=== PATIENT | female | born 1990 | race Caucasian/White ===

== ENCOUNTER 2016-10-08 08:55 | Emergency (ER) | payer OTHER ==
[2016-10-08 09:09] VITALS: BP 107/62
--- NOTE | 2016-10-08 09:21 | UC ---
Lower Extremity/Ankle HPI - HPI Summary HPI Summary: This morning, about 2 hours ago, got out of bed, left foot was asleep and she slipped, falling and inverting her left foot. Has taken ibuprofen but has not used ice. - History of Current Complaint Chief Complaint: UCLowerExtremity Stated Complaint: S/P FALL LEFT ANKLE INJURY Time Seen by Provider: 10/08/16 09:10 Hx Obtained From: Patient Hx Last Menstrual Period: 09/11/16 ?: No Onset/Duration: Sudden Onset, Lasting Hours - 2 Severity Initially: Moderate Severity Currently: Moderate Pain Intensity: 6 Pain Scale Used: 0-10 Numeric Aggravating Factor(s): Standing, Ambulation Alleviating Factor(s): OTC Meds Able to Bear Weight: No - Risk Factors DVT Risk Factors: Smoking Septic Arthritis Risk Factor: Negative - Allergies/Home Medications Allergies/Adverse Reactions: Allergies Allergy/AdvReac Type Severity Reaction Status Date / Time No Known Allergies Allergy Verified 10/08/16 09:04 PMH/Surg Hx/FS Hx/Imm Hx Previously Healthy: Yes Endocrine History Of: Denies: Diabetes Cardiovascular History Of: Denies: Cardiac Disorders Respiratory History Of: Denies: COPD, Asthma - Surgical History Surgical History: Yes Surgery Procedure, Year, and Place: left arm surgery. and tubal ligation 02/08/15 - Family History Known Family History: Positive: None - parents living and healthy, Other - son with Friedrick's ataxia - Social History Occupation: Employed Full-time Alcohol Use: Occasionally Substance Use Type: None Smoking Status (MU): Heavy Every Day Tobacco Smoker Type: Cigarettes Amount Used/How Often: 1/2 pack daily Have You Smoked in the Last Year: Yes Household Exposure Type: Cigarettes Review of Systems Constitutional: Negative Skin: Negative Eyes: Negative ENT: Negative Respiratory: Negative Cardiovascular: Negative Gastrointestinal: Negative Genitourinary: Negative Motor: Negative Neurovascular: Negative Musculoskeletal: Arthralgia Neurological: Negative Psychological: Negative All Other Systems Reviewed And Are Negative: Yes Physical Exam Triage Information Reviewed: Yes Appearance: Well-Appearing, Pain Distress - mild to moderate with palpation of foot. Vital Signs: Initial Vital Signs Temp 98.2 F 10/08/16 09:05 Pulse 80 10/08/16 09:05 Resp 16 10/08/16 09:05 BP 107/62 10/08/16 09:05 Pulse Ox 100 10/08/16 09:05 Vital Signs Reviewed: Yes ENT: Positive: Normal ENT inspection Respiratory: Positive: Lungs clear, Normal breath sounds Cardiovascular: Positive: RRR, No Murmur Musculoskeletal: Positive: Strength Intact, ROM Limited @, Other: - No tenderness distal tibia or fibula. Can flex ankle to neutral position. Pain with palpation of the anterior talofibular ligament. Tenderness fifth metatarsal. Mild swelling lateral border of foot. Pain with movement of subtalar joint. Psychological Exam: Normal Skin Exam: Normal Diagnostics - Laboratory Diagnostic Studies Completed/Ordered: xray negative for fracture. Lower Extremity Course/Dx - Course Course Of Treatment: ibuprofen, ice, Matty wrap - Differential Dx/Diagnosis Differential Diagnosis/HQI/PQRI: Sprain, Strain Provider Diagnoses: left foot strain. Discharge - Discharge Plan Condition: Stable Disposition: HOME Patient Education Materials: Foot Sprain (ED), RICE Therapy (ED) Forms: *Work Release Referrals: CAMDEN Holder [Primary Care Provider] - Additional Instructions: Ensure that you are elevating your foot and using ice regularly. Keep your foot in a firm supportive shoe. Off work for the next 3 days.
--- NOTE | 2016-10-08 09:44 | RAD ---
INDICATION: Left foot injury. TECHNIQUE: 3 views of the left foot were obtained. FINDINGS: The bones are in normal alignment. No fracture is seen. Joint spaces appear maintained. IMPRESSION: NO EVIDENCE FOR FRACTURE.
== END 2016-10-08 10:08 | disposition home or self-care (01) ==
LOC: UCCORT 08:55
DX: S96.912A Strain of unspecified muscle and tendon at ankle and foot level, left foot, initial encounter (principal); W01.0XXA Fall on same level from slipping, tripping and stumbling without subsequent striking against object, initial encounter; Y93.89 Activity, other specified; Y92.9 Unspecified place or not applicable; F17.210 Nicotine dependence, cigarettes, uncomplicated
CPT/HCPCS: 99211; 99212; G0463

== ENCOUNTER 2016-11-17 12:32 | Emergency (ER) | payer OTHER ==
[2016-11-17 14:21] VITALS: BP 106/52
--- NOTE | 2016-11-17 14:32 | UC ---
Throat Pain/Nasal Maicol HPI - HPI Summary HPI Summary: 26 yo female with large swollen painful gland left neck near angle of jaw no f/c has had a headache and felt fatigued x 1 week son with strep 2-3 weeks ago no n/v/d - History of Current Complaint Chief Complaint: UCGeneralIllness Stated Complaint: SORE THROAT Time Seen by Provider: 11/17/16 14:23 Hx Obtained From: Patient Hx Last Menstrual Period: 11/11/16 ?: No Onset/Duration: Sudden Onset, Lasting Days Severity: Moderate Pain Intensity: 4 Pain Scale Used: 0-10 Numeric Cough: None - Epiglottits Risk Factors Epiglottis Risk Factors: Negative - Allergies/Home Medications Allergies/Adverse Reactions: Allergies Allergy/AdvReac Type Severity Reaction Status Date / Time No Known Allergies Allergy Verified 11/17/16 14:21 PMH/Surg Hx/FS Hx/Imm Hx Previously Healthy: Yes Endocrine History Of: Denies: Diabetes Cardiovascular History Of: Denies: Cardiac Disorders Respiratory History Of: Denies: COPD, Asthma - Surgical History Surgical History: Yes Surgery Procedure, Year, and Place: left arm surgery. and tubal ligation 02/08/15 - Family History Known Family History: Positive: None - parents living and healthy, Hypertension , Other - son with Friedrick's ataxia Negative: Cardiac Disease, Diabetes - Social History Alcohol Use: None Substance Use Type: None Smoking Status (MU): Heavy Every Day Tobacco Smoker Type: Cigarettes Amount Used/How Often: 1/2 pack daily Have You Smoked in the Last Year: Yes Household Exposure Type: Cigarettes Review of Systems Constitutional: Fatigue Skin: Negative Eyes: Negative ENT: Negative Respiratory: Negative Cardiovascular: Negative Gastrointestinal: Negative Genitourinary: Negative Motor: Negative Neurovascular: Negative Musculoskeletal: Negative Neurological: Negative Psychological: Negative All Other Systems Reviewed And Are Negative: Yes Physical Exam Triage Information Reviewed: Yes Appearance: Well-Appearing, No Pain Distress, Well-Nourished Vital Signs: Initial Vital Signs Temp 98 F 11/17/16 14:15 Pulse 70 11/17/16 14:15 Resp 16 11/17/16 14:15 BP 106/52 11/17/16 14:15 Pulse Ox 100 11/17/16 14:15 Vital Signs Reviewed: Yes Eyes: Positive: Conjunctiva Clear ENT: Positive: Normal ENT inspection, Pharyngeal erythema, Tonsillar swelling, Tonsillar exudate. Negative: Nasal congestion, Nasal drainage, Trismus, Muffled /hoarse voice Dental Exam: Normal Neck: Positive: Supple, Nontender, Tenderness @ - left ant cervical LN, Enlarged Nodes @ - bilat ant and post Respiratory: Positive: Lungs clear, Normal breath sounds, No respiratory distress, No accessory muscle use Cardiovascular: Positive: RRR, No Murmur Musculoskeletal: Positive: ROM Intact, No Edema Neurological Exam: Normal Neurological: Positive: Alert Psychological Exam: Normal Skin Exam: Normal Throat Pain/Nasal Course/Dx - Course Course Of Treatment: RS (-) - Differential Dx/Diagnosis Provider Diagnoses: lymphadenopathy. fatigue. ?mono Discharge - Discharge Plan Condition: Stable Disposition: HOME Prescriptions: Prednisone 60 mg PO DAILY #6 tab Patient Education Materials: Lymphadenopathy (ED), Mononucleosis (ED) Forms: *Work Release Referrals: CAMDEN Holder [Primary Care Provider] - 5 Days (if not better) Additional Instructions: recheck for new or worsening symptoms while you are taking prednisone I suggest you use tylenol instead of Motrin
[2016-11-17] MEDS ORDERED: predniSONE TAB* 20 MG PO ONE (14:49)
[2016-11-17 18:40] LABS: EBV Response NO
[2016-11-17 18:47] LABS: Hematocrit 38 % (35-47); Hemoglobin 12.7 g/dl (12.0-16.0); Mean Corpuscular HGB Conc 34 g/dl (31-36); Mean Corpuscular Hemoglobin 31 pg (27-31); Mean Corpuscular Volume 94 fL (80-97); Mean Platelet Volume 9 um3 (7.4-10.4); Red Blood Count 4.04 10^6/ul (4.0-5.4); Red Cell Distribution Width 12 % (10.5-15); White Blood Count 8.7 10^3/ul (3.5-10.8)
[2016-11-17 18:54] LABS: Manual Entry Verification MD; Mono Internal Control QC Line Present
== END 2016-11-17 15:10 | disposition home or self-care (01) ==
LOC: UCCORT 12:32
DX: R59.0 Localized enlarged lymph nodes (principal); R53.83 Other fatigue; F17.210 Nicotine dependence, cigarettes, uncomplicated
CPT/HCPCS: 36415; 85025; 86308; 87651; 99212; G0463; J7512

== ENCOUNTER 2017-06-24 11:51 | Emergency (ER) | payer OTHER ==
[2017-06-24 13:57] VITALS: BP 95/54
--- NOTE | 2017-06-24 14:51 | UC ---
Respiratory Complaint HPI - HPI Summary HPI Summary: 26 YEAR old female with cough and cold symptoms. post nasal drip and sinus pressure . Sore throat, congestion and body ache for 2-3 days after her child got sick Taking otc cold med w/ not much relief. Had fever 101 and chills last night. [ End ] - History of Current Complaint Chief Complaint: UCRespiratory Stated Complaint: FEVER,SINUSES Time Seen by Provider: 06/24/17 13:57 Hx Obtained From: Patient Hx Last Menstrual Period: 11/11/16 Onset/Duration: Gradual Onset Timing: Constant Severity Initially: Mild Character: Cough: Productive - Allergies/Home Medications Allergies/Adverse Reactions: Allergies Allergy/AdvReac Type Severity Reaction Status Date / Time No Known Allergies Allergy Verified 06/24/17 13:54 PMH/Surg Hx/FS Hx/Imm Hx Previously Healthy: Yes - Surgical History Surgical History: Yes Surgery Procedure, Year, and Place: left arm surgery. 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 Alcohol Use: None Substance Use Type: None Smoking Status (MU): Heavy Every Day Tobacco Smoker Type: Cigarettes Amount Used/How Often: 1/2 pack daily Have You Smoked in the Last Year: Yes Household Exposure Type: Cigarettes Cessation Counseling: Patient Advised to Stop - Immunization History Most Recent Influenza Vaccination: none Review of Systems Constitutional: Fever, Chills, Fatigue ENT: Sore Throat, Ear Ache, Nasal Discharge, Sinus Congestion, Sinus Pain/ Tenderness Respiratory: Cough Musculoskeletal: Myalgia All Other Systems Reviewed And Are Negative: Yes Physical Exam Triage Information Reviewed: Yes Appearance: Well-Appearing, Well-Nourished Vital Signs: Initial Vital Signs Temp 98.5 F 06/24/17 13:54 Pulse 81 06/24/17 13:54 Resp 16 06/24/17 13:54 BP 95/54 06/24/17 13:54 Pulse Ox 100 06/24/17 13:54 Vital Signs Reviewed: Yes Eye Exam: Normal ENT Exam: Normal Dental Exam: Normal Neck exam: Normal Neck: Positive: 1 Respiratory Exam: Normal Cardiovascular Exam: Normal Musculoskeletal Exam: Normal Neurological Exam: Normal Psychological Exam: Normal Skin Exam: Normal UC Diagnostic Evaluation - Laboratory O2 Sat by Pulse Oximetry: 100 Respiratory Course/Dx - Course Course Of Treatment: see d/c notes -- conservative treatment and if sx worsen or persist another 3 days then start the amox but appears to be viral URI at this time and she is agreeable . 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 - Differential Dx/Diagnosis Differential Diagnosis/HQI/PQRI: Laryngitis, Lower Resp Infection, Sinusitis Provider Diagnoses: URI Discharge - Discharge Plan Condition: Good Disposition: HOME Prescriptions: Amoxicillin PO (*) [Amoxicillin 875 MG (*)] 875 mg PO BID #14 tab Patient Education Materials: Upper Respiratory Infection (ED) Referrals: Non Staff,Doctor [Primary Care Provider] - 4 Days Additional Instructions: WE DISCUSSED PLEASE START CLARITIN AND FLONASE FOR THE NEXT 3 DAYS AND IF YOUR SYMPTOMS WORSEN THEN AT THAT TIME YOU MAY START THE AMOXICILLIN BUT AT THIS TIME IT APPEARS YOU HAVE A VIRAL INFECTION
== END 2017-06-24 14:59 | disposition home or self-care (01) ==
LOC: UCCORT 11:51
DX: J06.9 Acute upper respiratory infection, unspecified (principal); F17.210 Nicotine dependence, cigarettes, uncomplicated
CPT/HCPCS: 99212; G0463

== ENCOUNTER 2017-09-19 11:37 | Emergency (ER) | payer OTHER ==
--- OUTSIDE RECORDS SUMMARY | 2017-09-19 12:48 | XMS REPORT ---
:1990 External Reference #:[id number] Author Organization [facility] Address [address] [address] Phone [phone] Care Team Providers Name Role Phone ZamoraBi jungDO Care Team Information Halal Butcher Unavailable Payers Type Date Identification Numbers Payment Provider Subscriber Commercial Policy Number: [id number] Mars Castillo PayID: [id number] 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 ETOH Use Occasionally consumes alcohol Smoking Patient is a current smoker, smokes every day Recreational Drug Use Denies Drug Use Smoking Light tobacco smoker (10 or fewer cigarettes/day) Daily Caffeine Consumes on average 1 cup of tea per day Allergies, Adverse Reactions, Alerts Date Description Reaction Status Severity Comments 05/07/2011 NKDA active Medications Medication Date Status Form Strength Qnty SIG Indications Ordering Provider Sertraline 08/26 Active Tablets 25mg 30tab 1 tablet by F33.1 Zamora, HCL s mouth once Bi, daily DO Ibuprofen 200 05/13 Active Tablets 200mg 4 Tabs PO Q8 Zamora, /2017 Hours prn Bi, DO Trazodone HCL 08/23 Hx Tablets 50mg 30tab 1 tablet by F33.1 Zamora, s mouth at Bi, - bedtime DO 08/26 Alprazolam 08/23 Hx Tablets 0.25mg 30tab 1 by mouth F41.1 s twice daily Bi, - as needed DO 09/16 Paroxetine 05/13 Hx Tablets 10mg 30tab 1 tablet by F41.1 Zamora, s mouth every Bi, - morning DO 08/23 Omeprazole 05/[address] 20mg 90cap 1 by mouth R10.84 s every day Bi, - DO 08/23 Glycerin 06/01 Hx Suppository 2gm 12uni 1 per rectum Leeroy, ts as directed Sindhu - prn N.P. 05/13 constipation Escitalopram 04/13 Hx Tablets 20mg 30tab 1 po qd Leeroy, s Sindhu, - N.P. 06/01 Bupropion HCL 04/13 Hx Tablets ER 150mg 30tab 1 po q am Leeroy, 24HR s Sindhu, - N.P. 06/01 Celexa 06/10 Hx Tablets 20mg 30tab 1 po qd Leeroy s Sindhu, - N.P. 06/10 Prozac Weekly 06/[address] 90mg 4caps 1 po q week Leeroy Sindhu, - N.P. 04/13 05/07 Hx Tablets Leeroy Multivitamin Sindhu, Ultra - N.P. 05/13 Zithromax 05/07 Hx Tablets 250mg 1tabs as directed Leeroy Z- Sindhu, - N.P. 06/10 Proair HFA 05/07 Hx Aerosol 108(90Bas 1can 2 puffs qid Leeroy e) mcg/ac prn Sindhu, - N.P. 05/13 Medications Administered in Office Medication Date Status Form Strength Qnty SIG Indications Ordering Provider PPD Administered Injection Katty Esparza PA Immunizations CPT Code Status Date Vaccine Lot # [id number] Given 09/16/2017 Afluria Imunization 20100 Given 09/16/2017 Tdap (Adacel) Ages 7 And Above Only [id number] Vital Signs Date Vital Result Comment 09/16/2017 Weight 158.00 lb Heart Rate 68 /min BP Systolic 118 mmHg BP Diastolic 68 mmHg Respiratory Rate 18 /min Height 68.5 inches 5'8.50" BMI (Body Mass Index) 23.7 kg/m2 08/23/2017 Weight 154.00 lb Heart Rate 78 /min BP Systolic 110 mmHg BP Diastolic 70 mmHg Respiratory Rate 18 /min Height 69.5 inches 5'9.50" BMI (Body Mass Index) 22.4 kg/m2 05/26/2017 Weight 156.00 lb Heart Rate 68 /min BP Systolic 118 mmHg BP Diastolic 68 mmHg Respiratory Rate 18 /min Height 69.5 inches 5'9.50" BMI (Body Mass Index) 22.7 kg/m2 05/13/2017 Weight 160.00 lb Heart Rate 72 /min BP Systolic 124 mmHg BP Diastolic 70 mmHg Respiratory Rate 18 /min Height 69.5 inches 5'9.50" BMI (Body Mass Index) 23.3 kg/m2 06/01/2013 Body Temperature 97.7 F Weight 165.31 lb Heart Rate 99 /min BP Systolic 118 mmHg BP Diastolic 70 mmHg O2 % BldC Oximetry 99 % 04/13/2013 Body Temperature 98.3 F Weight 170.00 lb Heart Rate 83 /min BP Systolic 90 mmHg BP Diastolic 50 mmHg O2 % BldC Oximetry 98 % 06/10/2011 Body Temperature 97.4 F Weight 209.00 lb Heart Rate 97 /min BP Systolic 114 mmHg BP Diastolic 77 mmHg O2 % BldC Oximetry 96 % 05/07/2011 Body Temperature 97.6 F Weight 225.00 lb Heart Rate 94 /min BP Systolic 112 mmHg BP Diastolic 68 mmHg O2 % BldC Oximetry 97 % Results Test Date Test Result H/L Range Note Laboratory test finding 08/23/2017 Pap Smear Thin Prep SEE NOTE 1 CBC With Auto Diff 08/23/2017 WBC 5.9 K/uL 4.1-11.0 RBC 4.16 M/uL 4.00-5.40 Hemoglobin 13.4 gm/dL 12.0-16.0 Hematocrit 39.0 % 36.0-47.0 MCV 93.8 fL 80.0-97.0 MCH 32.1 pg High 27.0-32.0 MCHC 34.2 g/dL 32.0-36.0 RDW 12.4 % 11.5-14.5 PLT Count 222 K/ul 140-400 MPV 8.4 FL 7.1-10.7 Neutrophil 62.1 % 35.0-75.0 Lymphocyte 29.9 % 16.0-52.0 Monocyte 5.9 % 2.0-10.0 Eosinophil 1.5 % 0.0-5.0 Basophil 0.6 % 0.0-4.0 Abs Neutrophils 3.7 K/uL 2.1-8.0 Abs Lymphocytes 1.8 K/uL 0.8-5.5 Abs Monocytes 0.3 K/uL 0.1-1.0 Abs Eosinophils 0.1 K/uL 0.0-0.5 Abs Basophils 0.0 K/uL 0.0-0.3 Comprehensive Met Panel-FCM 08/23/2017 Sodium 141 mmol/L 135-146 2 Potassium 4.3 mmol/L 3.5-5.2 Chloride# 105 mmol/L 97-110 3 Carbon Dioxide 30 mmol/L 24-34 Glucose 88 mg/dL 70-105 Creatinine 0.6 mg/dL 0.5-1.4 Calcium 9.4 mg/dL 8.5-10.2 Total Protein 6.6 g/dL 6.0-8.0 Albumin 4.7 g/dL 3.6-4.9 Globulin 1.9 g/dL Low 2.0-3.5 A/G Ratio 2.5 Ratio High 1.0-2.2 Total Bilirubin 0.4 mg/dL 0.1-1.3 Alkaline Phosphatase 55 U/L 24-140 Alt 7 U/L 3-42 Ast 12 U/L 8-42 Allison Egfr >60 >60 4 Non Allison Egfr >60 >60 5 Anion Gap 6 mmol/L Low 7-16 6 BUN 11 mg/dL 6-26 Laboratory test finding 08/23/2017 TSH 0.89 uIU/mL 0.35-4.94 Laboratory test finding 08/23/2017 HPV Laboratory [facility]ia <SEE 7 NOTE> Ua RFX Micro & 07/30/2017 Urine Color YELLOW Yellow 8 Culture II Urine Clarity SL CLOUDY Clear 8 Urine Glucose - Dipstick NEGATIVE mg/dL Negative 8 Urine Bilirubin - Dipstick NEGATIVE Negative 8 Urine Ketone NEGATIVE mg/dL Negative 8 Urine Specific Wheeler 1.010 1.010-1.030 8 Urine Blood NEGATIVE Negative 8 Urine PH 6.0 Low 6.5-7.5 8 Urine Protein - Dipstick NEGATIVE mg/dL Negative 8 Urine Urobilinogen - Dipstick 0.2 E.U./dL 0.2-1.0 8 Urine Nitrite - Dipstick NEGATIVE Negative 8 Urine Leuk Esterase NEGATIVE Negative 8 Source: URINE, CLEAN CAT <SEE NOTE> 8, 9 CBC 10/22/2013 White Blood Count 12.4 K/uL High 3.1-10.7 Red Blood Count 3.80 M/uL Low 3.90-5.40 Hemoglobin 12.5 gm/dL 11.6-15.8 Hematocrit 36.9 % 36.0-46.1 Mean Cell Volume 97.1 fl 80.9-99.0 Mean Corpuscular HGB 32.9 pg High 25.9-32.7 Mean Corpuscular HGB Conc 33.9 g/dL 30.8-34.3 Platelet Count 213 K/uL 155-360 Red Cell Distri Width %CV 12.8 % 11.7-14.4 Mean Platelet Volume 10.7 fL 8.9-12.4 Laboratory test finding 10/22/2013 Antibody Identification Anti-Jka Crossmatch See Note 10 Antigen Identification See Note 11 Laboratory test finding 10/22/2013 Rapid Plasma Reagin See Note 12 Type And Screen 10/22/2013 Patient Blood Type O POS Antibody Screen POSITIVE High Negative Urinalysis With Microscopic 10/10/2013 Urine Color YELLOW Yellow Urine Clarity SL CLOUDY Clear Urine Glucose - Dipstick NEGATIVE mg/dL Negative Urine Bilirubin - Dipstick NEGATIVE Negative Urine Ketone 40 mg/dL High Negative Urine Specific Wheeler >=1.030 1.010-1.030 Urine Blood SMALL High Negative Urine PH 6.0 Low 6.5-7.5 Urine Protein - Dipstick TRACE mg/dL Negative Urine Urobilinogen - Dipstick 1.0 E.U./dL 0.2-1.0 Urine Nitrite - Dipstick NEGATIVE Negative Urine Leuk Esterase TRACE High Negative Urine RBC 2-5 rbc/hpf 0-7 Urine WBC 5-10 wbc/hpf 0-7 Urine Epithelial Cells MANY NONESEEN/lpf 13 Urine Bacteria FEW NONESEEN Urine Mucus SMALL NONESEEN Urine Screen 10/10/2013 Urine Screen See Note 14 Genital Culture W/ Gram Stain 09/12/2013 Gram Stain See Note 15 Genital Culture See Note 16 Laboratory test finding 09/12/2013 Fibronectin Negative (Negative) 17 Urine Screen 09/11/2013 Urine Color YELLOW Yellow Urine Clarity SL CLOUDY Clear Urine Glucose - Dipstick NEGATIVE mg/dL Negative Urine Bilirubin - Dipstick NEGATIVE Negative Urine Ketone TRACE mg/dL High Negative Urine Specific Wheeler 1.025 1.010-1.030 Urine Blood NEGATIVE Negative Urine PH 7.5 6.5-7.5 Urine Protein - Dipstick NEGATIVE mg/dL Negative Urine Urobilinogen - Dipstick 2.0 E.U./dL High 0.2-1.0 Urine Nitrite - Dipstick NEGATIVE Negative Urine Leuk Esterase NEGATIVE Negative Urine Screen 06/27/2013 Urine Color YELLOW Yellow Urine Clarity CLEAR Clear Urine Glucose - Dipstick NEGATIVE mg/dL Negative Urine Bilirubin - Dipstick NEGATIVE Negative Urine Ketone 15 mg/dL High Negative Urine Specific Wheeler >=1.030 1.010-1.030 Urine Blood NEGATIVE Negative Urine PH 6.0 Low 6.5-7.5 Urine Protein - Dipstick NEGATIVE mg/dL Negative Urine Urobilinogen - Dipstick 0.2 E.U./dL 0.2-1.0 Urine Nitrite - Dipstick NEGATIVE Negative Urine Leuk Esterase NEGATIVE Negative Urine Screen 05/25/2013 Urine Color YELLOW Yellow Urine Clarity CLOUDY Clear Urine Glucose - Dipstick NEGATIVE mg/dL Negative Urine Bilirubin - Dipstick NEGATIVE Negative Urine Ketone NEGATIVE mg/dL Negative Urine Specific Wheeler 1.020 1.010-1.030 Urine Blood NEGATIVE Negative Urine PH 7.0 6.5-7.5 Urine Protein - Dipstick NEGATIVE mg/dL Negative Urine Urobilinogen - Dipstick 4.0 E.U./dL High 0.2-1.0 Urine Nitrite - Dipstick NEGATIVE Negative Urine Leuk Esterase NEGATIVE Negative Urine HCG (Qualitative) 05/25/2013 Urine HCG (Qualitative) POSITIVE High Negative Urinalysis With 05/16/2013 Urine Color YELLOW Yellow Microscopic Urine Clarity SL CLOUDY Clear Urine Glucose - Dipstick NEGATIVE mg/dL Negative Urine Bilirubin - Dipstick SMALL High Negative Urine Ketone 40 mg/dL High Negative Urine Specific Wheeler 1.015 1.010-1.030 Urine Blood NEGATIVE Negative Urine PH 6.5 6.5-7.5 Urine Protein - Dipstick NEGATIVE mg/dL Negative Urine Urobilinogen - Dipstick 4.0 E.U./dL High 0.2-1.0 Urine Nitrite - Dipstick NEGATIVE Negative Urine Leuk Esterase TRACE High Negative Urine Microscopic <pending> Urine RBC 0-2 rbc/hpf 0-7 Urine WBC 0-2 wbc/hpf 0-7 Urine Epithelial Cells MODERATE NONESEEN/lpf 18 Urine Bacteria FEW NONESEEN Urine Amorph Sediment SMALL Negative Type And Screen 05/16/2013 Patient Blood Type O POS Antibody Screen POSITIVE High Negative CBC W/Automated Diff 05/16/2013 White Blood Count 9.3 K/uL 3.1-10.7 Red Blood Count 3.80 M/uL Low 3.90-5.40 Hemoglobin 12.8 gm/dL 11.6-15.8 Hematocrit 35.7 % Low 36.0-46.1 Mean Cell Volume 93.9 fl 80.9-99.0 Mean Corpuscular HGB 33.7 pg High 25.9-32.7 Mean Corpuscular HGB Conc 35.9 g/dL High 30.8-34.3 Platelet Count 240 K/uL 155-360 Red Cell Distri Width SD 40.9 fl 3-47 Red Cell Distri Width %CV 12.3 % 11.7-14.4 Mean Platelet Volume 10.4 fL 8.9-12.4 Neut% 71.5 % 40.4-72.8 Lymph % 21.5 % 17.0-46.1 Summers % 6.4 % 4.3-13.2 Eo% 0.4 % 0.0-6.6 Bas% 0.2 % 0.0-1.1 Neut# 6.67 K/uL 1.0-7.0 Lymph # 2.01 K/uL 0.8-3.4 Summers # 0.60 K/uL 0.3-0.9 Eos # 0.04 K/uL 0.0-0.5 Baso # 0.02 K/uL 0.0-0.1 Laboratory test finding 05/16/2013 Rapid Plasma NONREACTIVE NONREACTIVE 19 Reagin Laboratory test finding 05/16/2013 Lead,Blood (Adult) 1 g/dL 0-19 20 Varicella-Zoster Virus IgG Ab 1.59 Immune>1.09in 21 Hepatitis B Surface Antigen Nonreactive Nonreactive 22 Rubella IgG Antibody Reactive Reactive Rubella IgG Iu/ml 90.0 IU/mL >=10.0 23 Antibody Detection See Note 24 Antibody Identification Anti-Jka Antigen Identification See Note 25 Urine Culture 05/16/2013 Urine Culture See Note 26 Antibody Titer 05/16/2013 Antibody: Anti-Jka Titer: < 1 27 Urinalysis With Microscopic 03/11/2013 Urine Color YELLOW Yellow Urine Clarity CLOUDY Clear Urine Glucose - Dipstick NEGATIVE mg/dL Negative Urine Bilirubin - Dipstick NEGATIVE Negative Urine Ketone NEGATIVE mg/dL Negative Urine Specific Wheeler >=1.030 1.010-1.030 Urine Blood NEGATIVE Negative Urine PH 6.0 Low 6.5-7.5 Urine Protein - Dipstick NEGATIVE mg/dL Negative Urine Urobilinogen - Dipstick 0.2 E.U./dL 0.2-1.0 Urine Nitrite - Dipstick NEGATIVE Negative Urine Leuk Esterase SMALL High Negative Urine RBC 0-2 rbc/hpf 0-7 Urine WBC 2-5 wbc/hpf 0-7 Urine Epithelial Cells MANY NONESEEN/lpf 28 Urine Bacteria MODERATE NONESEEN High Urine Mucus MODERATE NONESEEN Urine Amorph Sediment SMALL Negative Urine Yeast VERY FEW NONESEEN Laboratory test finding 03/11/2013 Culture If Indicated Comment See Note 29 Urine Screen See Note 30 Urine Culture See Note 31 Laboratory test finding 03/11/2013 HCG, Quant 41317.0 mIU/mL 32 CBC W/Automated Diff 03/11/2013 White Blood Count 9.1 K/uL 3.1-10.7 Red Blood Count 4.12 M/uL 3.90-5.40 Hemoglobin 13.4 gm/dL 11.6-15.8 Hematocrit 38.6 % 36.0-46.1 Mean Cell Volume 93.7 fl 80.9-99.0 Mean Corpuscular HGB 32.5 pg 25.9-32.7 Mean Corpuscular HGB Conc 34.7 g/dL High 30.8-34.3 Platelet Count 215 K/uL 155-360 Red Cell Distri Width SD 38.9 fl 3-47 Red Cell Distri Width %CV 11.7 % 11.7-14.4 Mean Platelet Volume 10.1 fL 8.9-12.4 Neut% 65.0 % 40.4-72.8 Lymph % 24.8 % 17.0-46.1 Summers % 8.3 % 4.3-13.2 Eo% 1.6 % 0.0-6.6 Bas% 0.3 % 0.0-1.1 Neut# 5.92 K/uL 1.0-7.0 Lymph # 2.26 K/uL 0.8-3.4 Summers # 0.76 K/uL 0.3-0.9 Eos # 0.15 K/uL 0.0-0.5 Baso # 0.03 K/uL 0.0-0.1 Urine Screen 02/23/2012 Urine Color YELLOW Yellow Urine Clarity CLEAR Clear Urine Glucose - Dipstick NEGATIVE mg/dL Negative Urine Bilirubin - Dipstick NEGATIVE Negative Urine Ketone TRACE mg/dL High Negative Urine Specific Wheeler >=1.030 1.010-1.030 Urine Blood NEGATIVE Negative Urine PH 6.0 Low 6.5-7.5 Urine Protein - Dipstick NEGATIVE mg/dL Negative Urine Urobilinogen - Dipstick 0.2 E.U./dL 0.2-1.0 Urine Nitrite - Dipstick NEGATIVE Negative Urine Leuk Esterase NEGATIVE Negative Laboratory test finding 02/23/2012 Urine HCG (Qualitative) NEGATIVE Negative 33 Comprehensive Metabolic 02/23/2012 Glucose 96 mg/dL 76-115 Panel BUN 14 mg/dL 5-23 Creatinine 0.7 mg/dL 0.5-1.4 Glom Filtration Rate, Estimate >60 mL/min >60 If >60 mL/min >60 34 BUN/Creat 20.0 ratio Sodium 138 mmol/L 136-145 Potassium 4.1 mmol/L 3.5-5.1 Chloride 104 mmol/L 98-107 Carbon Dioxide 25 mEq/L 18-29 Anion Gap 13 mEq/L 8-16 Calcium 9.3 mg/dL 8.5-10.1 Total Protein 7.8 g/dL 6.3-8.0 Albumin 4.2 g/dL 3.5-5.0 Globulin 3.6 g/dL 1.9-4.3 Alb/Glob 1.2 ratio Bilirubin,Total 0.4 mg/dL 0.2-1.2 Sgot/Ast 13 U/L Low 16-40 SGPT/Alt 18 U/L Low 30-65 Alkaline Phosphatase 91 U/L 50-136 CBC 02/23/2012 White Blood Count 8.6 K/uL 3.1-10.7 Red Blood Count 4.49 M/uL 3.90-5.40 Hemoglobin 13.9 gm/dL 11.6-15.8 Hematocrit 40.5 % 36.0-46.1 Mean Cell Volume 90.2 fl 80.9-99.0 Mean Corpuscular HGB 31.0 pg 25.9-32.7 Mean Corpuscular HGB Conc 34.3 g/dL 30.8-34.3 Platelet Count 271 K/uL 155-360 Red Cell Distri Width %CV 12.3 % 11.7-14.4 Mean Platelet Volume 9.8 fL 8.9-12.4 Protime 02/23/2012 Protime 13.3 seconds 12.2-15.2 Inr 1.0 0.9-1.1 35 Laboratory test finding 07/21/2011 Giard/Cryptosp Exam SEE NOTE 36 [employer] [facility] [place] [address] CYTOLOGY REPORT Source of Specimen(s): Thin Prep Cervical Pap Smear - One Vial Date of Last Menstrual Period: None Provided Other Clinical Conditions: Last Pap Smear: 2014 normal HPV ASSAY REQUESTED Specimen Adequacy SATISFACTORY FOR EVALUATION ABSENCE OF ENDOCERVICAL/TRANSFORMATION ZONE COMPONENT General Categorization NEGATIVE FOR INTRAEPITHELIAL LESION OR MALIGNANCY Interpretation NEGATIVE FOR INTRAEPITHELIAL LESION OR MALIGNANCY Comment HPV testing will be performed and a separate report will be issued. Reported: 08/25/2017 07:58 Electronically Signed Out By Jacque ANGEL rzd ICD9 Code: N92.6 Unless otherwise specified, testing performed by [facility] [place] [address] [place] [address] 2 Updated reference range on new analyzer 3 Updated reference range on new analyzer 4 Concerning GFR Guidelines for Americans: Normal function or mild renal disease, if clinically at risk: >/=60 mL/min Moderately decreased: 30-59 Severely decreased: 15-29 Renal failure: <15 5 Concerning GFR Guidelines: Normal function or mild renal disease, if clinically at risk: >/=60 mL/min Moderately decreased: 30-59 Severely decreased: 15-29 Renal failure: <15 Glomerular Filtration Rate (GFR) is estimated based on the MDRD equation, which assumes a steady state for creatinine as recommended by the National Kidney Disease Education Program in conjunction with the National Institutes of Health and the National Kidney Foundation. Clinical conditions in which it may be necessary to measure GFR by using clearance methods include extremes of age and body size, severe malnutrition or obesity, diseases of skeletal muscle, paraplegia or quadriplegia, vegetarian diet, rapidly changing kidney function, and calculation of the dose of potentially toxic drugs that are excreted by the kidneys. 6 Updated reference range on new analyzer 7 [place] [address] Amplified Molecular High Risk HPV Test Patient Name:ALEKSANDRA CASTILLO Patient :1990 Ordering Physician:BETHANY LEE Accession Number [id number] Specimen(s) Received A: High Risk HPV Thin Prep Cervical Pap Smear - One Vial Other Case Numbers: [id number] Diagnosis RISK GROUPS RESULTS High Risk NEGATIVE Tested for HPV Types (16, 18, 31, 33, 35, 39, 45, 51, 52, 56, 58, 59, 66, 68) Reported: 08/26/2017 12:08 Electronically Signed Out By Bela Mane vikas De [place] 8 CHEST PAIN, DIZZY, NAUSEA 9 URINE, CLEAN CATCH 10 [id number] O POS Comp? Y <N/A> 11 Jka Ag - NEGATIVE 12 PENDING; TEST PERFORMED ON MONDAYS AND THURSDAYS 13 POSSIBLE UROGENITAL CONTAMINATION. 14 10/11/13 LAB.CKS Deleted by [facility]AC[facility] 15 GRAM STAIN ! GRAM STAIN INDICATES NORMAL GENITAL MARINE ! MANY GR POS. BACILLI SUGGESTIVE OF LACTOBACILLUS SP. ! VERY FEW GRAM VARIABLE COCCOBACILLI 16 GENITAL MARINE 17 The predictive value of a negative test (<50 ng/mL) has been shown to be 95-99% in many studies. A negative result is predictive of a decreased chance of premature delivery within the following 7 to 14 days. Lubricants and Candidiasis may induce falsely negative results. 18 POSSIBLE UROGENITAL CONTAMINATION. 19 PENDING; TEST PERFORMED ON MONDAYS AND THURSDAYS 20 The Centers for Disease Control and Prevention states blood lead levels less than 10 ug/dL in children have been associated with numerous adverse health effects. [facility] Guidelines: Blood lead levels in the range 5-9 ug/dL have been associated with adverse health effects in children aged 6 years and younger. Environmental Exposure: WHO Recommendation <20 Occupational Exposure: OSHA Lead Std 40 Detection Limit=1 21 Nonimmune <0.91 Equivocal 0.91 - 1.09 Immune >1.09 Performed at: RN - [facility] [address] [id number] [employer] Oven Attendant: Sammie Ray MD, Phone: [phone] 22 HBsAg not detected; does not exclude the possibility of exposure to or early acute infections with HBV. 23 Values >=10.0 IU/mL are positive for IgG antibodies to rubella virus and are considered IMMUNE. 24 No reportable results 25 Jka Ag - NEGATIVE 26 COLONY COUNT ! 80,000-100,000 CFU/ml Organism 1 ! URETHRAL MARINE 27 PREVOUSLY REPORTED ANTI-JKA IDENTIFIED USING CAPTURE TECHNOLOGY (HIGHLY SENSITIVE). ANTIBODY SCREEN REPEATED AND TITER PERFORMED USING MANUAL TUBE METHOD (LESS SENSITIVE). UPON REPEAT, NO ANTIBODY REACTIVITY WAS DETECTED. THEREFORE, ANTIBODY TITER DETERMINED TO BE <1. PATIENT SHOULD RETURN AT 30 DAY INTERVALS TO DETERMINE ANTIBODY STATUS AND PATIENT RISK. 28 POSSIBLE UROGENITAL CONTAMINATION. 29 CULTURE TO FOLLOW 03/11/13 LAB.GSP Deleted by [facility] 31 COLONY COUNT ! 40,000-50,000 CFU/ml Organism 1 ! URETHRAL MARINE 32 Approximate Gestational Age and Total BHCG Range: 0.2 - 1 Week........................5-50 mIU/mL 1 - 2 Weeks.....................50-500 mIU/mL 2 - 3 Weeks..................100-5,000 mIU/mL 3 - 4 Weeks.................500-10,000 mIU/mL 4 - 5 Weeks...............1,000-50,000 mIU/mL 5 - 6 Weeks.............10,000-100,000 mIU/mL 6 - 8 Weeks.............15,000-200,000 mIU/mL 2 - 3 Months............10,000-100,000 mIU/mL 33 FIRST MORNING SPECIMENS GENERALLY CONTAIN THE HIGHEST CONCENTRATION OF HCG AND ARE RECOMMENDED FOR EARLY DETECTION OF . 34 Note: Persistent reduction for 3 months or more in an eGFR <60 mL/min/1.73 m2 defines CKD. Patients with eGFR values >/=60 mL/min/1.73 m2 may also have CKD if evidence of persistent proteinuria is present. The original MDRD equation for estimated GFR is not valid for patients less than 18 years of age. Additional information may be found at www.kdoqi.org. 35 THERAPEUTIC INR RANGE: 2.0 - 3.0 DVT, Pulmonary embolus, prophylaxis against venous thrombosis or systemic embolization in high risk patients. 2.5 - 3.5 Mechanical heart valves 36 SPECIMEN DESCRIPTION STOOL SPECIAL REQUESTS NONE RESULT NEGATIVE FOR GIARDIA BY DFA NEGATIVE FOR CRYPTOSPORIDIUM BY DFA STOOL SPECIMEN SCREENED FOR THE PRESENCE OF GIARDIA LAMBLIA AND CRYPTOSPORIDIUM PARVUM ONLY. FOR PATIENTS FROM OR WITH A HISTORY OF TRAVEL TO A DEVELOPING COUNTRY, OR WHO HAVE PERSISTANT SYMPTOMS AND/OR ARE IMMUNOCOMPROMISED, CALL MICROBIOLOGY TO REQUEST THE REFLEX TEST OAP FOR A COMPREHENSIVE MICROSCOPIC EXAMINATION. SPECIMENS ARE SAVED IN FIXATIVE AND HELD FOR 7 DAYS FROM THE REPORT DATE TO ALLOW THESE TESTS TO BE ADDED ON. REPORT STATUS FINAL 07/22/2011 Unless otherwise specified, testing performed by [facility] [address] [place] [id number] Procedures Description No Information Encounters Type Date Location Provider CPT E/M Dx Office Visit 08/23/2017 2:30p [facility] [address] F33.1 N92.6 F41.1 Office Visit 05/26/2017 11:30a [facility] [address] R10.84 Office Visit 05/13/2017 1:15p [facility] [address] F41.1 F33.9 R10.84 Office Visit 06/01/2013 10:15a Sindhu Olivares, N.P. 09591 564.09 Office Visit 04/13/2013 9:45a Sindhu Olivares, N.P. 37409 [phone] Office Visit 06/10/2011 1:45p Sindhu Olivares, N.P. 60758 296.22 Office Visit 05/07/2011 9:15a Sindhu Olivares, N.P. 00402 478.9 Plan of Care Future Appointment(s):09/23/2017 1:45 pm - Bethany Esparza PA at [facility]2017 - Bi Zamora, DOZ11.1 Encounter for screening for respiratory tuberculosisFollow up:Follow up as needed
--- OUTSIDE RECORDS SUMMARY | 2017-09-19 12:48 | XMS REPORT ---
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 ETOH Use Occasionally consumes alcohol Smoking Patient is a current smoker, smokes every day Recreational Drug Use Denies Drug Use Smoking Light tobacco smoker (10 or fewer cigarettes/day) Daily Caffeine Consumes on average 1 cup of tea per day Allergies, Adverse Reactions, Alerts Date Description Reaction Status Severity Comments 05/07/2011 NKDA active Medications Medication Date Status Form Strength Qnty SIG Indications Ordering Provider Trazodone HCL 08/23 Active Tablets 50mg 30tab 1 tablet by F33.1 s mouth at Bi, bedtime DO Alprazolam 08/23 Active Tablets 0.25mg 30tab 1 by mouth F41.1 s twice daily Bi, as needed DO anxiety Ibuprofen 200 05/13 Active Tablets 200mg 4 Tabs PO Q8 Hours prn Bi, DO Paroxetine 05/13 Hx Tablets 10mg 30tab 1 tablet by F41.1 s mouth every Bi, - morning DO 08/23 Omeprazole 05/[address] 20mg 90cap 1 by mouth R10.84 s every day Bi, - DO 08/23 Glycerin 06/01 Hx Suppository 2gm 12uni 1 per rectum Leeroy, ts as directed Sindhu, - prn N.P. 05/13 constipation Escitalopram 04/13 Hx Tablets 20mg 30tab 1 po qd Leeroy, s Sindhu - N.P. 06/01 Bupropion HCL 04/13 Hx Tablets ER 150mg 30tab 1 po q am Leeroy, 24HR s Sindhu, - N.P. 06/01 Celexa 06/10 Hx Tablets 20mg 30tab 1 po qd Leeroy s Sindhu, - N.P. 06/10 Prozac Weekly 06/[address] 90mg 4caps 1 po q week [place] Sindhu, - N.P. 04/13 05/07 Hx Tablets Leeroy, Multivitamin- Sindhu, Ultra - N.P. 05/13 Zithromax 05/07 Hx Tablets 250mg 1tabs as directed Leeroy Z- Sindhu, - N.P. 06/10 Proair HFA 05/07 Hx Aerosol 108(90Bas 1can 2 puffs qid Leeroy e) mcg/ac prn Sindhu, - N.P. 05/13 Vital Signs Date Vital Result Comment 08/23/2017 Weight 154.00 lb Heart Rate 78 [...] Laboratory test finding 08/23/2017 Pap Smear Thin <pending> Prep-RL Laboratory test finding 08/23/2017 TSH <pending> Ua RFX Micro & 07/30/2017 Urine Color YELLOW Yellow 1 Culture II Urine Clarity SL CLOUDY Clear 1 Urine Glucose - Dipstick NEGATIVE mg/dL Negative 1 Urine Bilirubin - Dipstick NEGATIVE Negative 1 Urine Ketone NEGATIVE mg/dL Negative 1 Urine Specific [place] 1.010 1.010-1.030 1 Urine Blood NEGATIVE Negative 1 Urine PH 6.0 Low 6.5-7.5 1 Urine Protein - Dipstick NEGATIVE mg/dL Negative 1 Urine Urobilinogen - Dipstick 0.2 E.U./dL 0.2-1.0 1 Urine Nitrite - Dipstick NEGATIVE Negative 1 Urine Leuk Esterase NEGATIVE Negative 1 Source: URINE, CLEAN CAT <SEE NOTE> 1, 2 CBC 10/22/2013 White Blood Count 12.4 K/uL [...] 10/22/2013 Antibody Identification Anti-Jka Crossmatch See Note 3 Antigen Identification See Note 4 Laboratory test finding 10/22/2013 Rapid Plasma Reagin See Note 5 Type And Screen 10/22/2013 Patient Blood Type O POS Antibody Screen POSITIVE High Negative Urinalysis With Microscopic 10/10/2013 Urine Color YELLOW Yellow Urine Clarity SL CLOUDY Clear Urine Glucose - Dipstick NEGATIVE mg/dL Negative Urine Bilirubin - Dipstick NEGATIVE Negative Urine Ketone 40 mg/dL High Negative Urine Specific [place] >=1.030 1.010-1.030 Urine Blood SMALL High Negative Urine PH 6.0 Low 6.5-7.5 Urine Protein - Dipstick TRACE mg/dL Negative Urine Urobilinogen - Dipstick 1.0 E.U./dL 0.2-1.0 Urine Nitrite - Dipstick NEGATIVE Negative Urine Leuk Esterase TRACE High Negative Urine RBC 2-5 rbc/hpf 0-7 Urine WBC 5-10 wbc/hpf 0-7 Urine Epithelial Cells MANY NONESEEN/lpf 6 Urine Bacteria FEW NONESEEN Urine Mucus SMALL NONESEEN Urine Screen 10/10/2013 Urine Screen See Note 7 Genital Culture W/ Gram Stain 09/12/2013 Gram Stain See Note 8 Genital Culture See Note 9 Laboratory test finding 09/12/2013 Fibronectin Negative (Negative) 10 Urine Screen 09/11/2013 Urine Color YELLOW Yellow Urine Clarity SL CLOUDY Clear Urine Glucose - Dipstick NEGATIVE mg/dL Negative Urine Bilirubin - Dipstick NEGATIVE Negative Urine Ketone TRACE mg/dL High Negative Urine Specific [place] 1.025 1.010-1.030 Urine Blood NEGATIVE Negative Urine [...] Ketone 15 mg/dL High Negative Urine Specific [place] >=1.030 1.010-1.030 Urine Blood NEGATIVE Negative Urine [...] Urine Ketone NEGATIVE mg/dL Negative Urine Specific [place] 1.020 1.010-1.030 Urine Blood NEGATIVE Negative Urine [...] Ketone 40 mg/dL High Negative Urine Specific [place] 1.015 1.010-1.030 Urine Blood NEGATIVE Negative Urine PH 6.5 6.5-7.5 Urine Protein - Dipstick NEGATIVE mg/dL Negative Urine Urobilinogen - Dipstick 4.0 E.U./dL High 0.2-1.0 Urine Nitrite - Dipstick NEGATIVE Negative Urine Leuk Esterase TRACE High Negative Urine Microscopic <pending> Urine RBC 0-2 rbc/hpf 0-7 Urine WBC 0-2 wbc/hpf 0-7 Urine Epithelial Cells MODERATE NONESEEN/lpf 11 Urine Bacteria FEW NONESEEN Urine Amorph Sediment [...] % 40.4-72.8 Lymph % 21.5 % 17.0-46.1 [place] % 6.4 % 4.3-13.2 Eo% 0.4 % 0.0-6.6 Bas% 0.2 % 0.0-1.1 Neut# 6.67 K/uL 1.0-7.0 Lymph # 2.01 K/uL 0.8-3.4 [place] # 0.60 K/uL 0.3-0.9 Eos # 0.04 K/uL 0.0-0.5 Baso # 0.02 K/uL 0.0-0.1 Laboratory test finding 05/16/2013 Rapid Plasma NONREACTIVE NONREACTIVE 12 Reagin Laboratory test finding 05/16/2013 Lead,Blood (Adult) 1 g/dL 0-19 13 Varicella-Zoster Virus IgG Ab 1.59 Immune>1.09in 14 Hepatitis B Surface Antigen Nonreactive Nonreactive 15 Rubella IgG Antibody Reactive Reactive Rubella IgG Iu/ml 90.0 IU/mL >=10.0 16 Antibody Detection See Note 17 Antibody Identification Anti-Jka Antigen Identification See Note 18 Urine Culture 05/16/2013 Urine Culture See Note 19 Antibody Titer 05/16/2013 Antibody: Anti-Jka Titer: < 1 20 Urinalysis With Microscopic 03/11/2013 Urine Color YELLOW Yellow Urine Clarity CLOUDY Clear Urine Glucose - Dipstick NEGATIVE mg/dL Negative Urine Bilirubin - Dipstick NEGATIVE Negative Urine Ketone NEGATIVE mg/dL Negative Urine Specific [place] >=1.030 1.010-1.030 Urine Blood NEGATIVE Negative Urine PH 6.0 Low 6.5-7.5 Urine Protein - Dipstick NEGATIVE mg/dL Negative Urine Urobilinogen - Dipstick 0.2 E.U./dL 0.2-1.0 Urine Nitrite - Dipstick NEGATIVE Negative Urine Leuk Esterase SMALL High Negative Urine RBC 0-2 rbc/hpf 0-7 Urine WBC 2-5 wbc/hpf 0-7 Urine Epithelial Cells MANY NONESEEN/lpf 21 Urine Bacteria MODERATE NONESEEN High Urine Mucus MODERATE NONESEEN Urine Amorph Sediment SMALL Negative Urine Yeast VERY FEW NONESEEN Laboratory test finding 03/11/2013 Culture If Indicated Comment See Note 22 Urine Screen See Note 23 Urine Culture See Note 24 Laboratory test finding 03/11/2013 HCG, Quant 79593.0 mIU/mL 25 CBC W/Automated Diff 03/11/2013 White Blood Count [...] % 40.4-72.8 Lymph % 24.8 % 17.0-46.1 [place] % 8.3 % 4.3-13.2 Eo% 1.6 % 0.0-6.6 Bas% 0.3 % 0.0-1.1 Neut# 5.92 K/uL 1.0-7.0 Lymph # 2.26 K/uL 0.8-3.4 [place] # 0.76 K/uL 0.3-0.9 Eos # 0.15 K/uL 0.0-0.5 Baso # 0.03 K/uL 0.0-0.1 Urine Screen 02/23/2012 Urine Color YELLOW Yellow Urine Clarity CLEAR Clear Urine Glucose - Dipstick NEGATIVE mg/dL Negative Urine Bilirubin - Dipstick NEGATIVE Negative Urine Ketone TRACE mg/dL High Negative Urine Specific [place] >=1.030 1.010-1.030 Urine Blood NEGATIVE Negative Urine PH 6.0 Low 6.5-7.5 Urine Protein - Dipstick NEGATIVE mg/dL Negative Urine Urobilinogen - Dipstick 0.2 E.U./dL 0.2-1.0 Urine Nitrite - Dipstick NEGATIVE Negative Urine Leuk Esterase NEGATIVE Negative Laboratory test finding 02/23/2012 Urine HCG (Qualitative) NEGATIVE Negative 26 Comprehensive Metabolic 02/23/2012 Glucose 96 mg/dL 76-115 Panel BUN 14 mg/dL 5-23 Creatinine 0.7 mg/dL 0.5-1.4 Glom Filtration Rate, Estimate >60 mL/min >60 If >60 mL/min >60 27 BUN/Creat 20.0 ratio Sodium 138 mmol/L 136-145 [...] Protime 13.3 seconds 12.2-15.2 Inr 1.0 0.9-1.1 28 Laboratory test finding 07/21/2011 Giard/Cryptosp Exam SEE NOTE 29 1 CHEST PAIN, DIZZY, NAUSEA 2 URINE, CLEAN CATCH 3 [id number] O POS Comp? Y <N/A> 4 Jka Ag - NEGATIVE 5 PENDING; TEST PERFORMED ON MONDAYS AND THURSDAYS 6 POSSIBLE UROGENITAL CONTAMINATION. 7 10/11/13 LAB[facility]CK[facility] 8 GRAM STAIN ! GRAM STAIN INDICATES NORMAL GENITAL MARINE ! MANY GR POS. BACILLI SUGGESTIVE OF LACTOBACILLUS SP. ! VERY FEW GRAM VARIABLE COCCOBACILLI 9 GENITAL MARINE 10 The predictive value of a negative test (<50 ng/mL) has been shown to be 95-99% in many studies. A negative result is predictive of a decreased chance of premature delivery within the following 7 to 14 days. Lubricants and Candidiasis may induce falsely negative results. 11 POSSIBLE UROGENITAL CONTAMINATION. 12 PENDING; TEST PERFORMED ON MONDAYS AND THURSDAYS 13 The Centers for Disease Control and Prevention states blood lead levels less than 10 ug/dL in children have been associated with numerous adverse health effects. [facility] Guidelines: Blood lead levels in the range 5-9 ug/dL have been associated with adverse health effects in children aged 6 years and younger. Environmental Exposure: WHO Recommendation <20 Occupational Exposure: OSHA Lead Std 40 Detection Limit=1 14 Nonimmune <0.91 Equivocal 0.91 - 1.09 Immune >1.09 Performed at: RN - [facility] [address] [id number] [employer] Internship: Sammie Ray MD, Phone: [phone] 15 HBsAg not detected; does not exclude the possibility of exposure to or early acute infections with HBV. 16 Values >=10.0 IU/mL are positive for IgG antibodies to rubella virus and are considered IMMUNE. 17 No reportable results 18 Jka Ag - NEGATIVE 19 COLONY COUNT ! 80,000-100,000 CFU/ml Organism 1 ! URETHRAL MARINE 20 PREVOUSLY REPORTED ANTI-JKA IDENTIFIED USING CAPTURE TECHNOLOGY (HIGHLY SENSITIVE). ANTIBODY SCREEN REPEATED AND TITER PERFORMED USING MANUAL TUBE METHOD (LESS SENSITIVE). UPON REPEAT, NO ANTIBODY REACTIVITY WAS DETECTED. THEREFORE, ANTIBODY TITER DETERMINED TO BE <1. PATIENT SHOULD RETURN AT 30 DAY INTERVALS TO DETERMINE ANTIBODY STATUS AND PATIENT RISK. 21 POSSIBLE UROGENITAL CONTAMINATION. 22 CULTURE TO FOLLOW 03/11/13 LAB.GSP Deleted by [facility] 24 COLONY COUNT ! 40,000-50,000 CFU/ml Organism 1 ! URETHRAL MARINE 25 Approximate Gestational Age and Total BHCG Range: 0.2 - 1 Week........................5-50 mIU/mL 1 - 2 Weeks.....................50-500 mIU/mL 2 - 3 Weeks..................100-5,000 mIU/mL 3 - 4 Weeks.................500-10,000 mIU/mL 4 - 5 Weeks...............1,000-50,000 mIU/mL 5 - 6 Weeks.............10,000-100,000 mIU/mL 6 - 8 Weeks.............15,000-200,000 mIU/mL 2 - 3 Months............10,000-100,000 mIU/mL 26 FIRST MORNING SPECIMENS GENERALLY CONTAIN THE HIGHEST CONCENTRATION OF HCG AND ARE RECOMMENDED FOR EARLY DETECTION OF . 27 Note: Persistent reduction for 3 months or more in an eGFR <60 mL/min/1.73 m2 defines CKD. Patients with eGFR values >/=60 mL/min/1.73 m2 may also have CKD if evidence of persistent proteinuria is present. The original MDRD equation for estimated GFR is not valid for patients less than 18 years of age. Additional information may be found at www.kdoqi.org. 28 THERAPEUTIC INR RANGE: 2.0 - 3.0 DVT, Pulmonary embolus, prophylaxis against venous thrombosis or systemic embolization in high risk patients. 2.5 - 3.5 Mechanical heart valves 29 SPECIMEN DESCRIPTION STOOL SPECIAL REQUESTS NONE RESULT [...] Unless otherwise specified, testing performed by [facility] [place] [facility] [address] [place] [address] Procedures Description No Information Encounters Type Date Location Provider CPT E/M Dx Office Visit 05/26/2017 11:30a [facility] [place] [address] R10.84 Office Visit 05/13/2017 1:15p [facility] [place] [address] F41.1 F33.9 R10.84 Office Visit 06/01/2013 10:15a Sindhu Olivares, N.P. 52049 564.09 Office Visit 04/13/2013 9:45a Sindhu Olivares, N.P. 40086 296.22 640.80 Office Visit 06/10/2011 1:45p Sindhu Olivares, N.P. 75314 296.22 Office Visit 05/07/2011 9:15a Sindhu Olivares, N.P. 75010 478.9 Plan of Care Future Appointment(s):09/23/2017 1:45 pm - Bethany Esparza PA at [facility]2017 - Bethany Esparza, PAF33.1 Major depressive disorder, recurrent, moderateNew Medication:Trazodone HCL 50 mgComments:Will try trazodone at night to help with sleepAdvised may take 2-4 weeks before noticing an improvementAdvised to set up appointment with a counselor - suggest Family Counseling ServicesCaution black box warning worsening depression with trazodoneCall office, police, hospital, friend/family with suicidal thoughtsTake time for yourselfCall with questions/concernsFollow up:1 [id number] Irregular menstruation, unspecifiedComments:Will check labs todayPap done [id number] Generalized anxiety disorderNew Medication:Alprazolam 0.25 mgComments:Will plan as above
--- OUTSIDE RECORDS SUMMARY | 2017-09-19 12:48 | XMS REPORT ---
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 05/13 PPD 00/00 Active Injection Isaias, /0000 JESUS Sims Immunizations CPT Code Status Date Vaccine Lot # [id number] Given 09/16/2017 Tdap (Adacel) Ages 7 And Above Only [id number] Vital Signs Date Vital Result Comment 09/16/2017 [...] Ketone NEGATIVE mg/dL Negative 8 Urine Specific [place] 1.010 1.010-1.030 8 Urine Blood NEGATIVE Negative [...] Ketone 40 mg/dL High Negative Urine Specific [place] >=1.030 1.010-1.030 Urine Blood SMALL High Negative [...] Ketone TRACE mg/dL High Negative Urine Specific [place] 1.025 1.010-1.030 Urine Blood NEGATIVE Negative Urine [...] Ketone 15 mg/dL High Negative Urine Specific [place] >=1.030 1.010-1.030 Urine Blood NEGATIVE Negative Urine [...] Urine Ketone NEGATIVE mg/dL Negative Urine Specific [place] 1.020 1.010-1.030 Urine Blood NEGATIVE Negative Urine [...] Ketone 40 mg/dL High Negative Urine Specific [place] 1.015 1.010-1.030 Urine Blood NEGATIVE Negative Urine [...] % 40.4-72.8 Lymph % 21.5 % 17.0-46.1 [place] % 6.4 % 4.3-13.2 Eo% 0.4 % 0.0-6.6 Bas% 0.2 % 0.0-1.1 Neut# 6.67 K/uL 1.0-7.0 Lymph # 2.01 K/uL 0.8-3.4 [place] # 0.60 K/uL 0.3-0.9 Eos # 0.04 [...] Urine Ketone NEGATIVE mg/dL Negative Urine Specific [place] >=1.030 1.010-1.030 Urine Blood NEGATIVE Negative Urine [...] 31 Laboratory test finding 03/11/2013 HCG, Quant 04306.0 mIU/mL 32 CBC W/Automated Diff 03/11/2013 White [...] % 40.4-72.8 Lymph % 24.8 % 17.0-46.1 [place] % 8.3 % 4.3-13.2 Eo% 1.6 % 0.0-6.6 Bas% 0.3 % 0.0-1.1 Neut# 5.92 K/uL 1.0-7.0 Lymph # 2.26 K/uL 0.8-3.4 [place] # 0.76 K/uL 0.3-0.9 Eos # 0.15 K/uL 0.0-0.5 Baso # 0.03 K/uL 0.0-0.1 Urine Screen 02/23/2012 Urine Color YELLOW Yellow Urine Clarity CLEAR Clear Urine Glucose - Dipstick NEGATIVE mg/dL Negative Urine Bilirubin - Dipstick NEGATIVE Negative Urine Ketone TRACE mg/dL High Negative Urine Specific [place] >=1.030 1.010-1.030 Urine Blood NEGATIVE Negative Urine [...] 07/21/2011 Giard/Cryptosp Exam SEE NOTE 36 1 [employer] [place] [address] CYTOLOGY REPORT Source of Specimen(s): Thin Prep [...] N92.6 Unless otherwise specified, testing performed by [facility] [address] [address] 2 Updated reference range on new analyzer [...] reference range on new analyzer 7 [place] [address] Amplified Molecular High Risk HPV Test Patient Name:ALEKSANDRA CASTILLO Patient :1990 Ordering Physician:BETHANY LEE Accession Number [id number] Specimen(s) Received A: High Risk HPV Thin Prep Cervical Pap Smear - One Vial Other Case Numbers: [id number] Diagnosis RISK GROUPS RESULTS High Risk NEGATIVE Tested for HPV Types (16, 18, 31, 33, 35, 39, 45, 51, 52, 56, 58, 59, 66, 68) Reported: 08/26/2017 12:08 Electronically Signed Out By Bela Mane vikas De [place]ón 8 CHEST PAIN, DIZZY, NAUSEA 9 URINE, CLEAN CATCH 10 [id number] O POS Comp? Y <N/A> 11 Jka [...] been associated with numerous adverse health effects. [facility] Guidelines: Blood lead levels in the range 5-9 ug/dL have been associated with adverse health effects in children aged 6 years and younger. Environmental Exposure: WHO Recommendation <20 Occupational Exposure: OSHA Lead Std 40 Detection Limit=1 21 Nonimmune <0.91 Equivocal 0.91 - 1.09 Immune >1.09 Performed at: RN - [facility] [address] [id number] Lining Cleaner: Sammie Ray MD, Phone: [phone] HBsAg not detected; does not exclude [...] Unless otherwise specified, testing performed by [facility] [place] [facility] [address] [place] [address] Procedures Description No Information Encounters Type Date Location Provider CPT E/M Dx Office Visit 08/23/2017 2:30p [facility] [place] [address] F33.1 N92.6 F41.1 Office Visit 05/26/2017 11:30a [facility] [place] [address] R10.84 Office Visit 05/13/2017 1:15p [facility] [place] [address] F41.1 F33.9 R10.84 Office Visit 06/01/2013 10:15a Sindhu Olivares, N.P. 46760 564.09 Office Visit 04/13/2013 9:45a Sindhu Olivares, N.P. 18752 296.22 640.80 Office Visit 06/10/2011 1:45p Sindhu Olivares, N.P. 96772 296.22 Office Visit 05/07/2011 9:15a Sindhu Olivares, N.P. 34433 478.9 Plan of Care Future Appointment(s):09/23/2017 1:45 pm - Bethany Esparza PA at [facility]2017 - Bethany Esparza PAZ23 Encounter for immunizationComments:Tdap given atryjO90.00 Encntr for general adult medical exam w/o abnormal findingsComments: Work PE for [employer] [facility] Hospitalcreening for linux systems administrator cancers (cervical, vaginal, vulvar) : Pap UTDScreening for colon cancer: no reason for early screeningRecommend periodic ophtho and dental care. Recommend limit alcohol to < 1 per day for womenHealthy lifestyle encouraged: Sleep target 7-8 hours per dayExercise, target 30 - 60 min moderate to vigorous exercise per day, with 5 days of week aerobic, 2 days per week strength and flexibility. Hydration, target 2.5 qrts per day of total fluids. Diet. Low fat/cholRecommend annual wellness visit.Follow up:PPD read 9:00 Wednesday AM okay per Dr. Braden68.23 Body mass index (BMI) 23.0-23.9, adultComments:Continue efforts at maintaining a healthy weight
[2017-09-19 12:51] VITALS: BP 100/62
--- NOTE | 2017-09-19 12:59 | UC ---
Skin Complaint HPI - HPI Summary HPI Summary: Pt c/o left upper arm pain after getting tetanus vaccine on 09/16/17. Pt is concerned for cellulitis at site. Pt c/o tender firm LUmp at injection site that causes pain to radiating down arm to finger tips and up neck to base of skull. - History of Current Complaint Chief Complaint: UCSkin Time Seen by Provider: 09/19/17 12:54 Stated Complaint: POSS. CELLULITIS Hx Obtained From: Patient Hx Last Menstrual Period: 09/09/17 ?: No Onset/Duration: Gradual Onset, Lasting Days, Still Present Skin Exposure Onset/Duration: Days Ago Timing: Constant Onset Severity: Mild Current Severity: Mild Pain Intensity: 5 Location: Discrete - ;eft upper arm Character: Pain, Raised Aggravating Factor(s): Touch Alleviating Factor(s): OTC Meds Associated Signs & Symptoms: Positive: Tenderness - Allergy/Home Medications Allergies/Adverse Reactions: Allergies Allergy/AdvReac Type Severity Reaction Status Date / Time No Known Allergies Allergy Verified 09/19/17 12:51 Home Medications: Home Medications ALPRAZolam TAB* [Xanax TAB*] 0.25 mg PO Q6H PRN 09/19/17 [History Confirmed 06/26] Review of Systems Constitutional: Negative Skin: Negative Eyes: Negative ENT: Negative Respiratory: Negative Cardiovascular: Negative Gastrointestinal: Negative Genitourinary: Negative Motor: Negative Neurovascular: Negative Musculoskeletal: Arthralgia - left upper arm Neurological: Negative Psychological: Negative Is Patient Immunocompromised?: No All Other Systems Reviewed And Are Negative: Yes PMH/Surg Hx/FS Hx/Imm Hx Previously Healthy: Yes - Surgical History Surgical History: Yes Surgery Procedure, Year, and Place: left arm surgery. and tubal ligation 02/08/15 - Family History Known Family History: Positive: None - parents living and healthy, Hypertension , Other - son with Friedrick's ataxia Negative: Cardiac Disease, Diabetes - Social History Occupation: Employed Full-time Lives: With Family Alcohol Use: Rare Substance Use Type: None Smoking Status (MU): Heavy Every Day Tobacco Smoker Type: Cigarettes Amount Used/How Often: 1/2 pack daily Have You Smoked in the Last Year: Yes Household Exposure Type: Cigarettes - Immunization History Most Recent Influenza Vaccination: none Hx Tetanus, Diphtheria Vaccination: Yes - 09/16/17 Physical Exam Triage Information Reviewed: Yes Appearance: Well-Appearing Vital Signs: Initial Vital Signs Temp 98.5 F 09/19/17 12:46 Pulse 78 09/19/17 12:46 Resp 18 09/19/17 12:46 BP 100/62 09/19/17 12:46 Pulse Ox 100 09/19/17 12:46 Vital Signs Reviewed: Yes Eye Exam: Normal ENT Exam: Normal Neck exam: Normal Neck: Positive: Supple, Nontender Respiratory Exam: Normal Cardiovascular Exam: Normal Musculoskeletal Exam: Other Musculoskeletal: Positive: Other: - left left upper arm, tender firm , golf ball size tender area Neurological Exam: Normal Psychological Exam: Normal Skin Exam: Normal Course/Dx - Course Course Of Treatment: I discussed with the pt the s/sx of cellulitis, and offered to send in oral antibiotics in response to pts concern for cellulitis. - Differential Diagnoses - Skin Complaint Differential Diagnoses: Other - localized reaction to vaccination - Diagnoses Provider Diagnoses: localized reaction to vaccine Discharge - Discharge Plan Condition: Stable Disposition: HOME Prescriptions: Cephalexin CAP* [Keflex 500 CAP*] 500 mg PO Q12H #14 cap Cetirizine* [ZyrTEC 10 MG TAB*] 10 mg PO DAILY #7 tab Patient Education Materials: Tdap and Td Vaccines in Adults (ED), Arm Pain (ED) Referrals: Bethany Esparza PA [Primary Care Provider] - If Needed Additional Instructions: Please note that I have provided an antibiotic for you if your skin condition worsens. Please do not use the antibiotic if your symptoms do not worsen.
== END 2017-09-19 13:12 | disposition home or self-care (01) ==
LOC: UCCORT 11:37
DX: T88.1XXA Other complications following immunization, not elsewhere classified, initial encounter (principal); M79.622 Pain in left upper arm; F17.210 Nicotine dependence, cigarettes, uncomplicated
CPT/HCPCS: 99212; G0463

== ENCOUNTER 2017-12-02 22:21 | Emergency (ER) | payer OTHER ==
--- OUTSIDE RECORDS SUMMARY | 2017-12-02 22:41 | XMS REPORT ---
:1990 External Reference #:[id number] Author Organization [facility] Address [address], [address] [place] [address] Phone [phone] Care Team Providers Name Role Phone Bethany Esparza PA-C Care Team Information Assistant Branch Operations Manager Unavailable Bethany Esparza PA-C Primary Care Physician Unavailable Payers Type Date Identification Numbers Payment Provider Subscriber Commercial Policy Number: [id number] [facility] Aleksandra Garcia PayID: [id number] [address] [place] [address] Problems Date Description Provider Status Onset: 06/02/2017 Flatulence, eructation and gas pain Juan Donaldson MD Active Onset: 06/02/2017 Constipation Juan Donaldson MD Active Onset: 06/02/2017 Abdominal pain Juan Donaldson MD Active Onset: 06/02/2017 Nausea and vomiting Juan Donaldson MD Active Onset: 06/02/2017 Loss of appetite Juan Donaldson MD Active Onset: 06/02/2017 Weight decreased Juan Donaldson MD Active Onset: 06/02/2017 Gastrointestinal tract finding Juan Donaldson MD Active Family History Date Family Member(s) Problem(s) Comments First Daughter Stomach Cancer Social History Type Date Description Comments Marital Status Single Home Environment Lives Alone Occupation Currently Working Work Status Currently Working Smokeless Tobacco Never Used Smokeless Tobacco ETOH Use Occasionally consumes alcohol Smoking Light tobacco smoker (10 or fewer cigarettes/day) Recreational Drug Use Denies Drug Use Daily Caffeine Patient consumes minimal amounts of caffeine Allergies, Adverse Reactions, Alerts Date Description Reaction Status Severity Comments Lactose (Allergy) active 06/02/2017 NKDA inactive Medications Medication Date Status Form Strength Qnty SIG Indications Ordering Provider Omeprazole 11/19/ Active Capsules DR 40mg 90caps 1 tab by R11.2 Juan Donaldson, 2018 mouth MD every day every morning Ibuprofen 200 00// Active Tablets 200mg 3 by Unknown 0000 mouth three times a day as needed Miralax / Active Powder 3350NF 3 cap by Unknown 0000 mouth every day every morning , titrate as needed Pepto-Bismol / Active Suspension 524mg/30ML Unknown 0000 Gas Relief / Active Chewtabs 80mg Unknown 0000 Sertraline / Active Tablets 25mg Marvell, HCL 0000 Bethany PA Ondansetron 06/02/ Hx Tablets 4mg 90tabs 1 tab by R11.2 Juan Donaldson, 2017 Dispers mouth MD three times a day as needed Dicyclomine 06/02/ Hx Capsules 10mg 90caps 1 cap by R10.9 ELIZABETH Velazquez 2017 mouth MD three times a day as needed Paroxetine / Hx Tablets 10mg 1 by Unknown HCL 0000 mouth every day Omeprazole / Hx Capsules DR 20mg 1 by Unknown 0000 - mouth every day 2018 Linzess / Hx Capsules 290mcg 1 by Unknown 0000 mouth every day Miralax / Hx Packet 3350NF 17g by Unknown 0000 mouth twice a day as needed constipat ion. Vital Signs Date Vital Result Comment 11/19/2017 BP Systolic Sitting Right Arm 106 mmHg BP Diastolic Sitting Right Arm 62 mmHg Heart Rate 93 /min Respiratory Rate 18 /min Height 68 inches 5'8" Weight 155.00 lb BMI (Body Mass Index) 23.6 kg/m2 BSA (Body Surface Area) 1.83 m2 [place] body weight in kilograms 63 06/02/2017 BP Systolic Sitting Left Arm 112 mmHg BP Diastolic Sitting Left Arm 64 mmHg Heart Rate 74 /min Respiratory Rate 16 /min Height 68 inches 5'8" Weight 156.00 lb BMI (Body Mass Index) 23.7 kg/m2 BSA (Body Surface Area) 1.84 m2 [place] body weight in kilograms 63 Results Test Date Test Result H/L Range Note Comprehensive Metabolic Panel 06/02/2017 Glucose 81 mg/dL 74-106 1 BUN 7 mg/dL 7-18 1 Creatinine 0.7 mg/dL 0.6-1.3 1 Glom Filtration Rate, Estimate >60 mL/min >60 1 If >60 mL/min >60 1, 2 BUN/Creat 10.0 ratio 1 Sodium 139 mmol/L 136-145 1 Potassium 4.3 mmol/L 3.5-5.1 1 Chloride 108 mmol/L High 98-107 1 Carbon Dioxide 26 mmol/L 21-32 1 Anion Gap 5 mEq/L Low 8-16 1 Calcium 8.9 mg/dL 8.5-10.1 1 Total Protein 7.5 g/dL 6.4-8.2 1 Albumin 4.4 g/dL 3.4-5.0 1 Globulin 3.1 g/dL 1.9-4.3 1 Alb/Glob 1.4 ratio 1 Bilirubin,Total 0.3 mg/dL 0.2-1.0 1 Sgot/Ast 9 U/L Low 15-37 1, 3 SGPT/Alt 15 U/L 12-78 1 Alkaline Phosphatase 65 U/L 45-117 1 Laboratory test finding 06/02/2017 Prealbumin 22.2 mg/dL 20.0-40.0 1 Sedimentation Rate 2 mm/hr 0-20 1, 4 C-Reactive Protein,Quant < 2.9 mg/L <3.0 1 Celiac Disease Comp AB Profile 06/02/2017 Immunoglobulin A 338 mg/dL 87- 352 1 Antigliadin Abs, IgG 2 units 0-19 1, 5 Antigliadin Abs, IgA 4 units 0-19 1, 6 Endomysial IgA Antibody Negative Negative 1 t-Transglutaminase IgA <2 U/mL 0-3 1, 7 t-Transglutaminase IgG <2 U/mL 0-5 1, 8 Xray 05/26/2017 Abdomen,Single Anteroposterior View <pending> 1 R93.3 R63.4 2 Note: Persistent reduction for 3 months or more in an eGFR <60 mL/min/1.73 m2 defines CKD. Patients with eGFR values >/=60 mL/min/1.73 m2 may also have CKD if evidence of persistent proteinuria is present. The original MDRD equation for estimated GFR is not valid for patients less than 18 years of age. Additional information may be found at www.kdoqi.org. 3 Values below the stated reference ranges of AST and ALT can be seen in normal populations. Clinical correlation is suggested. 4 Method: Sediplast Modified Westergren 5 Negative 0 - 19 Weak Positive 20 - 30 Moderate to Strong Positive >30 6 Negative 0 - 19 Weak Positive 20 - 30 Moderate to Strong Positive >30 7 Negative 0 - 3 Weak Positive 4 - 10 Positive >10 Tissue Transglutaminase (tTG) has been identified as the endomysial antigen. Studies have demonstr- ated that endomysial IgA antibodies have over 99% specificity for gluten sensitive enteropathy. 8 Negative 0 - 5 Weak Positive 6 - 9 Positive >9 Performed at: RN - [facility] [address] [id number] Stripping Shovel Oiler: Sammie Ray MD, Phone: [phone] Procedures Date CPT Code Description Status 06/03/2011 40241 Anesthesia,Neuraxial Labor Completed Encounters Type Date Location Provider CPT E/M Dx Office Visit 06/02/2017 1:15[place] [id number] R93.3 R63.4 R63.0 R11.2 R10.9 K59.00 R14.0 Plan of Care Future Appointment(s):12/16/2017 10:30 am - Juan Donaldson MD at Operating Room11/19 - Juan Donaldson, MDR11.2 Nausea with vomiting, unspecifiedNew Medication: Omeprazole 40 mgComments:EGDR10.9 Unspecified abdominal painNew Labs:[place], 24 Hour UrinePorphobilinogen,QN,24HR UrineNew Xrays:Abdomen,Single Anteroposterior ViewComments:Linzess yvznpN90.0 Abdominal distension (gaseous) New Xrays:Gastric Emptying StudyNew Orders:Bacterial Overgrowth Breath TestComments:LOW FODMAP elimination diet
[2017-12-02] MEDS ORDERED: Ketorolac INJ* 60 MG/2 ML VIAL IM ONE (23:09)
[2017-12-02] MEDS ORDERED: Metoclopramide IV* 5 MG/ML 2 ML VIAL IV ONE (23:09)
[2017-12-02] MEDS ORDERED: diPHENhydraMINE IV* 50 MG/ML 1 ml VIAL (BENADRYL) IV ONE (23:09)
--- NOTE | 2017-12-03 00:06 | ED ---
Headache - HPI Summary HPI Summary: Complains of persistent, daily left side headache 3 months with associated N/V , blurred vision, lightheadedness, loss of focus, fatigue, neck pain, occasional left upper extremity paresthesia. no history of same prior. Patient has had eye exam and has new glasses with no relief of symptoms. Patient takes Tylenol daily with temporary relief of symptoms. Has seen PCP for same, and diagnosed with stress headaches. Patient denies fever, cough, sore throat, ear pain, neck stiffness, CP, SOB, diarrhea, abdominal pain, change in urinary or BM. No prior neurological evaluation or imaging. Med history is gastric ulcers. Just finished menses. History of BTL. - History Of Current Complaint Chief Complaint: EDHeadache Stated Complaint: DIZZINESS/NUMBNESS/HEADACHE Time Seen by Provider: 12/02/17 23:32 Hx Obtained From: Patient Hx Last Menstrual Period: 09/09/17 Onset/Duration: Gradual Onset, Started weeks ago Initially Headache Was: Moderate Currently Pain Is: Moderate Timing: Constant Character: Dull, Throbbing Location of Headache: Temporal Aggravating Factor: Nothing Allevating Factors: Medication Associated Signs And Symptoms: Nausea, Vomiting, Neck Pain, Visual Changes - Allergies/Home Medications Allergies/Adverse Reactions: Allergies Allergy/AdvReac Type Severity Reaction Status Date / Time No Known Allergies Allergy Verified 12/02/17 23:39 Home Medications: Home Medications Acetaminophen [Tylenol Extra Strength] 500 mg PO Q4H PRN 12/02/17 [History Confirmed 12/02/17] PMH/Surg Hx/FS Hx/Imm Hx Endocrine/Hematology History: Denies: Hx Diabetes Respiratory History: Denies: Hx Asthma, Hx Chronic Obstructive Pulmonary Disease (COPD) - Surgical History Surgery Procedure, Year, and Place: left arm surgery. and tubal ligation 02/08/15 - Immunization History Date of Tetanus Vaccine: utd Date of Influenza Vaccine: utd Infectious Disease History: No Infectious Disease History: Reports: Hx Shingles - at age 11yrs Denies: Traveled Outside the [place] in Last 30 Days - Family History Known Family History: Positive: None - parents living and healthy, Hypertension , Other - son with Friedrick's ataxia Negative: Cardiac Disease, Diabetes - Social History Alcohol Use: Rare Substance Use Type: Reports: None Smoking Status (MU): Heavy Every Day Tobacco Smoker Type: Cigarettes Amount Used/How Often: 1/2 pack daily Have You Smoked in the Last Year: Yes Review of Systems Constitutional: Negative Positive: Blurred Vision ENT: Negative Cardiovascular: Negative Respiratory: Negative Gastrointestinal: Negative Genitourinary: Negative Positive: Myalgia Skin: Negative Positive: Headache Psychological: Normal All Other Systems Reviewed And Are Negative: Yes Physical Exam - Summary Physical Exam Summary: Neuro exam normal Triage Information Reviewed: Yes Vital Signs On Initial Exam: Initial Vitals Temp Pulse Resp BP Pulse Ox 98.1 F 78 20 118/74 100 12/02/17 22:25 12/02/17 22:25 12/02/17 22:25 12/02/17 22:25 12/02/17 22:25 Vital Signs Reviewed: Yes Appearance: Positive: Well-Appearing Skin: Positive: Warm Head/Face: Positive: Normal Head/Face Inspection Eyes: Positive: Normal ENT: Positive: Normal ENT inspection Neck: Positive: Supple Respiratory/Lung Sounds: Positive: Clear to Auscultation Cardiovascular: Positive: Normal Abdomen Description: Positive: Nontender Musculoskeletal: Positive: Normal Neurological: Positive: Normal Psychiatric: Positive: Normal AVPU Assessment: Alert - Zena Coma Scale Best Eye Response: 4 - Spontaneous Best Motor Response: 6 - Obeys Commands Best Verbal Response: 5 - Oriented Coma Scale Total: 15 Diagnostics - Vital Signs Vital Signs Temp Pulse Resp BP Pulse Ox 12/02/17 22:25 98.1 F 78 20 118/74 100 - Laboratory Lab Statement: Any lab studies that have been ordered have been reviewed, and results considered in the medical decision making process. - CT brain CT Interpretation: No Acute Changes CT Interpretation Completed By: Radiologist Headache Course/Dx - Course Course Of Treatment: Vital signs within normal limits. Imaging negative. Neuro exam normal. Has follow-up appointment with PCP on Wednesday. - Diagnoses Provider Diagnoses: Headache Is Visit Related: No Discharge - Sign-Out/Discharge Documenting (check all that apply): Discharge/Admit/Transfer - Discharge Plan Condition: Stable Disposition: HOME Patient Education Materials: Migraine Headache (ED), Tension Headache (ED) Referrals: Bethany Esparza PA [Primary Care Provider] - Additional Instructions: Follow-up with primary care. Return to the ED for any new or worsening symptoms - Billing Disposition and Condition Condition: STABLE Disposition: HOME
[2017-12-03 03:23] VITALS: BP 95/52
--- NOTE | 2017-12-03 07:55 | RAD ---
INDICATION: Headache. COMPARISON: There are no prior studies available for comparison. TECHNIQUE: Contiguous axial sections of the brain were obtained from the skull base to the vertex without contrast. FINDINGS: The ventricles, cisterns and sulci are within normal limits. No significant focal abnormality or mass effect is seen. There is no evidence for hemorrhage. No significant focal osseous abnormality is seen. The visualized portion of the paranasal sinuses and mastoid air cells appear clear. IMPRESSION: NO EVIDENCE FOR ACUTE INTRACRANIAL ABNORMALITY.
== END 2017-12-03 03:22 | disposition home or self-care (01) ==
LOC: ED 22:21
DX: R51 Headache (principal); F17.210 Nicotine dependence, cigarettes, uncomplicated
CPT/HCPCS: 70450; 96372; 96374; 96375; 99283; J1200; J1885; J2765

== ENCOUNTER 2018-03-20 21:33 | Emergency (ER) | payer OTHER ==
[2018-03-20] MEDS ORDERED: Ondansetron INJ* 2 MG/ML VIAL IV ONE (22:34)
[2018-03-20] MEDS ORDERED: LORazepam INJ* 2 MG/ML 1 ML VIAL IV PUSH ONE (22:34)
[2018-03-20] MEDS ORDERED: NS 0.9% 1000 ML* 1,000 ML IV ONE ×2 (22:34→23:47)
[2018-03-20] MEDS ORDERED: Ketorolac INJ* 30 MG/ML 1 ML VIAL IV PUSH ONE (22:35)
[2018-03-20] MEDS ORDERED: Albuterol 2.5 MG/3 ML NEB.SOL* (0.083%) INH ONE ×2 (22:36→23:31)
[2018-03-20 23:11] LABS: ABS Basophils 0 10^3/ul (0-0.2); ABS Eosinophils 0.1 10^3/ul (0-0.6); ABS Lymphocytes 0.7 10^3/ul (1.0-4.8); ABS Monocytes 0.4 10^3/ul (0-0.8); ABS Nucleated RBC 0 10^3/ul; Eosinophil % 2.7 % (0-6); Hematocrit 39 % (35-47); Hemoglobin 13.4 g/dl (12.0-16.0); Lymphocyte % 17.5 % (25-47); Mean Corpuscular HGB Conc 35 g/dl (31-36); Mean Corpuscular Hemoglobin 32 pg (27-31); Mean Corpuscular Volume 94 fL (80-97); Mean Platelet Volume 7.6 um3 (7.4-10.4); Nucleated Red Blood Cells % 0; Platelet Count 164 10^3/ul (150-450); Red Blood Count 4.16 10^6/ul (4.00-5.40); Red Cell Distribution Width 12 % (10.5-15); White Blood Count 4.2 10^3/ul (3.5-10.8)
--- NOTE | 2018-03-20 23:13 | ED ---
Respiratory - HPI Summary HPI Summary: 27 year old female presents with shortness breath for the past 4 days. States she was seen at [facility] yesterday twice and was diagnosed with pneumonia. States she's been taking doxycyline and has taken 4 doses. She's been having fevers. She has feels like she's been having cramping in her legs. She admits to vomiting and has been taking zofran with minimal relief. She denies any coughing. She denies any history of asthma or COPD but she does smoke. Denies any recent travel. No family history of blood clots. She has her tubes tied. She has been taking Tylenol for the fevers. She has no medical conditions. no one else is sick. She admits to decreased appetite. She states that was given some Ativan at [facility] when seemed to help. - History of Current Complaint Chief Complaint: EDShortnessOfBreath Stated Complaint: FEVER Time Seen by Provider: 03/20/18 22:19 Pain Intensity: 0 - Allergy/Home Medications Allergies/Adverse Reactions: Allergies Allergy/AdvReac Type Severity Reaction Status Date / Time No Known Allergies Allergy Verified 12/02/17 23:39 PMH/Surg Hx/FS Hx/Imm Hx Endocrine/Hematology History: Denies: Hx Diabetes Respiratory History: Denies: Hx Asthma, Hx Chronic Obstructive Pulmonary Disease (COPD) - Surgical History Surgery Procedure, Year, and Place: left arm surgery. and tubal ligation 02/08/15 - Immunization History Date of Tetanus Vaccine: utd Date of Influenza Vaccine: utd Infectious Disease History: No Infectious Disease History: Reports: Hx Shingles - at age 11yrs Denies: Traveled Outside the [place] in Last 30 Days - Family History Known Family History: Positive: None - parents living and healthy, Hypertension , Other - son with Friedrick's ataxia Negative: Cardiac Disease, Diabetes - Social History Alcohol Use: Rare Substance Use Type: Reports: None Smoking Status (MU): Heavy Every Day Tobacco Smoker Type: Cigarettes Amount Used/How Often: 1/2 pack daily Have You Smoked in the Last Year: Yes Review of Systems Negative: Fever Negative: Chest Pain Positive: Shortness Of Breath, Cough Positive: Vomiting All Other Systems Reviewed And Are Negative: Yes Physical Exam Triage Information Reviewed: Yes Vital Signs On Initial Exam: Initial Vitals Temp Pulse Resp BP Pulse Ox 99.7 F 99 15 112/66 96 03/20/18 21:36 03/20/18 21:36 03/20/18 21:36 03/20/18 21:36 03/20/18 21:36 Vital Signs Reviewed: Yes Appearance: Positive: Well-Appearing Skin: Positive: Warm, Dry Head/Face: Positive: Normal Head/Face Inspection Eyes: Positive: Normal, Conjunctiva Clear ENT: Positive: Normal ENT inspection, Pharynx normal, TMs normal Neck: Positive: Supple, Nontender, No Lymphadenopathy Respiratory/Lung Sounds: Positive: Clear to Auscultation, Breath Sounds Present Cardiovascular: Positive: Normal, RRR Abdomen Description: Positive: Nontender, Soft Bowel Sounds: Positive: Present Musculoskeletal: Positive: Normal Neurological: Positive: Normal Psychiatric: Positive: Normal Diagnostics - Vital Signs Vital Signs Temp Pulse Resp BP Pulse Ox 03/20/18 23:00 24 03/20/18 22:53 7 03/20/18 21:36 99.7 F 99 15 112/66 96 - Laboratory Lab Results: Lab Results 03/20/18 Range/Units 23:01 WBC 4.2 (3.5-10.8) 10^3/ul RBC 4.16 (4.00-5.40) 10^6/ul Hgb 13.4 (12.0-16.0) g/dl Hct 39 (35-47) % MCV 94 (80-97) fL MCH 32 H (27-31) pg MCHC 35 (31-36) g/dl RDW 12 (10.5-15) % Plt Count 164 (150-450) 10^3/ul MPV 7.6 (7.4-10.4) um3 Neut % (Auto) 70.5 (38-83) % Lymph % (Auto) 17.5 L (25-47) % [place] % (Auto) 8.3 H (0-7) % Eos % (Auto) 2.7 (0-6) % Baso % (Auto) 1.0 (0-2) % Absolute Neuts (auto) 3.0 (1.5-7.7) 10^3/ul Absolute Lymphs (auto) 0.7 L (1.0-4.8) 10^3/ul Absolute Monos (auto) 0.4 (0-0.8) 10^3/ul Absolute Eos (auto) 0.1 (0-0.6) 10^3/ul Absolute Basos (auto) 0 (0-0.2) 10^3/ul Absolute Nucleated RBC 0 10^3/ul Nucleated RBC % 0 Result Diagrams: 03/20/18 23:01 03/20/18 23:01 Lab Statement: Any lab studies that have been ordered have been reviewed, and results considered in the medical decision making process. - Radiology chest Xray Interpretation: No Acute Changes Radiology Interpretation Completed By: ED Physician - CT cta CT Interpretation: Positive (See Comments) - left lower lobe pnumonia, no PE CT Interpretation Completed By: Radiologist - EKG No standard instances Cardiac Rate: NL EKG Rhythm: Sinus Rhythm ST Segment: Normal EKG Interpretation: sinus rhythm Re-Evaluation - Re-Evaluation First Eval Re-Evaluation Time: 23:33 Change: Unchanged Comment: same SOB after neb and toradol and ativan. elevated d-dimer so will get CTA Second Eval Re-Evaluation Time: 01:12 Change: Improved Comment: feeling better after neb Disposition - Course Course Of Treatment: 27 year old female presents with shortness breath for the past 4 days. States she was seen at [facility] yesterday twice and was diagnosed with pneumonia. States she's been taking doxycyline and has taken 4 doses. She 's been having fevers. She has feels like she's been having cramping in her legs. She admits to vomiting and has been taking zofran with minimal relief. She denies any coughing. She denies any history of asthma or COPD but she does smoke. Denies any recent travel. No family history of blood clots. She has her tubes tied. She has been taking Tylenol for the fevers. She has no medical conditions. no one else is sick. She admits to decreased appetite. She states that was given some Ativan at [facility] when seemed to help. on exam appears anxious. lungs CTA. abd mild tenderness LUQ. labs wbc normal. crp elevated d-dimer elevated so got CTA. chest xray read by me shows pneumonia in left lower lobe. CTA shows left lower lobe pneumonia. no PE. gave dose of azithromycin here. discussed options with patient and that could admit as has been on antibiotics for two days. patient wants to go home. will add on zpack as will give coverage for atypicals. will give inhaler. told to follow up with primary within 3 days. patient understand and agrees with plan. - Differential Dx - Cardiopulmonary Differential Diagnoses - Cardiopulmonary: Bronchitis, Lower Resp Infection, Pulmonary Embolism - Diagnoses Provider Diagnoses: Pneumonia Discharge - Sign-Out/Discharge Documenting (check all that apply): Patient Departure - Discharge Plan Condition: Good Disposition: HOME Prescriptions: Albuterol HFA INHALER* [Ventolin HFA Inhaler*] 1 puff INH Q4H PRN #1 mdi PRN Reason: Cough Azithromycin TAB* [Zithromax TAB (Z-ADAM) 250 mg #6 tabs] 250 mg PO DAILY #4 tab guaiFENesin/CODIEN 100MG-10MG* [Robitussin AC 100Mg-10Mg*] 5 ml PO Q6H PRN #50 ml MDD 20ml PRN Reason: Cough Patient Education Materials: Pneumonia (ED) Referrals: Mi LLANOS,Sameer Ivy [Primary Care Provider] - Additional Instructions: Use inhaler up to two puffs every 4 hours for cough and wheezing Take azithromycin once daily starting tomorrow for 4 days, continue doxycyle in prescribed Take cough medication 5ml (1 teaspoon) every 6 hours at night as needed cough Take Tylenol or ibuprofen for pain every 6 hours Return to ED if develop severe shortness of breath, worsening chest pain, or any new or worsening symptoms - Billing Disposition and Condition Condition: GOOD Disposition: Home
[2018-03-20 23:29] LABS: EGFR Non-African American 84.3 (>60)
[2018-03-20] MEDS ORDERED: Iohexol 350* (CONTRAST) 500 ML MDV IV ONE (23:43)
[2018-03-20 23:56] LABS: Urine Appearance Cloudy; Urine Blood 2+ (Negative); Urine Color Yellow; Urine Ketones 1+ (Negative); Urine Protein Negative (Negative); Urine Red Blood Cell 1+(3-5/hpf) (Absent); Urine Specific Gravity 1.013 (1.010-1.030); Urine Urobilinogen Negative (Negative); Urine White Blood Cell Trace(0-5/hpf) (Absent)
[2018-03-21] MEDS ORDERED: Azithromycin IV(*) 500 MG in NS 0.9% 250 ML* 250 ML IVPB ONE (00:09)
[2018-03-21] MEDS ORDERED: guaiFENesin/CODIEN 100MG-10MG* 5 ML UDC PO ONE (01:10)
[2018-03-21] MEDS ORDERED: A lbuterol Hfa (PREPAK) 1 MDI - ED TAKE HOME DISPENSING ONLY INHH ONE (01:11)
[2018-03-21 01:47] VITALS: BP 95/59
--- NOTE | 2018-03-21 07:59 | RAD ---
HISTORY: SOB COMPARISONS: None VIEWS: 4: Frontal dual-energy and lateral views of the chest. FINDINGS: CARDIOMEDIASTINAL SILHOUETTE: The cardiomediastinal silhouette is normal. MADHAVI: The madhavi are normal. PLEURA: The costophrenic angles are sharp. No pleural abnormalities are noted. LUNG PARENCHYMA: There is patchy and confluent alveolar opacification of the left lower lobe. ABDOMEN: The upper abdomen is clear. There is no subphrenic gas. BONES AND SOFT TISSUES: No bone or soft tissue abnormalities are noted. OTHER: None. IMPRESSION: LEFT LOWER LOBE CONSOLIDATION. RECOMMEND FOLLOW-UP UNTIL RESOLUTION TO EXCLUDE UNDERLYING PULMONARY PARENCHYMAL PATHOLOGY. R1
--- NOTE | 2018-03-21 08:03 | RAD ---
HISTORY: SOB, elevated d-dimer, leg pain COMPARISONS: Chest x-ray dated March 20, 2018 TECHNIQUE: Multiple contiguous axial CT scans of the chest were obtained after the administration of nonionic intravenous contrast, timed to the pulmonary arterial phase of contrast enhancement.. Coronal and sagittal multiplanar reformations are also submitted for review. FINDINGS: NECK AND THYROID: The lower neck and thyroid are unremarkable. CHEST WALL: There is no lower cervical, axillary, or supraclavicular lymphadenopathy by size criteria. HEART AND PERICARDIUM: The heart is unremarkable. AORTA AND PULMONARY VASCULATURE: There is no pulmonary arterial filling defect to suggest pulmonary embolism. There is no linear filling defect within the aorta to suggest aortic dissection. MEDIASTINUM: There is no mediastinal lymphadenopathy by size criteria. MADHAVI: There is 1.4 cm short axis left hilar lymph node. AIRWAY AND ESOPHAGUS: The airway is unremarkable, without endobronchial filling defect. The esophagus is grossly normal. LUNG PARENCHYMA: There is consolidation of the basal segments of left lower lobe PLEURA: No pleural abnormalities are noted. UPPER ABDOMEN: The upper abdomen is unremarkable. BONES AND SOFT TISSUES: There is mild degenerative disc disease with several small Schmorl's nodes. OTHER: None. IMPRESSION: 1. NO PULMONARY ARTERIAL FILLING DEFECT TO SUGGEST PULMONARY EMBOLISM. 2. LEFT LOWER LOBE CONSOLIDATION WITH ENLARGED LEFT HILAR LYMPH NODE, LIKELY REACTIVE. R2
== END 2018-03-21 02:06 | disposition home or self-care (01) ==
LOC: ED 21:33
DX: J18.9 Pneumonia, unspecified organism (principal); R06.02 Shortness of breath; R05 Cough; F17.210 Nicotine dependence, cigarettes, uncomplicated
CPT/HCPCS: 36415; 71046; 71275; 80053; 81003; 81015; 84484; 84702; 85025; 85379; 86140; 87040; 87086; 93005; 96374; 96375; 99284; A9270-GY; J0456; J1885; J2060; J2405; Q9967

== ENCOUNTER 2019-04-17 18:50 | Emergency (ER) | payer OTHER ==
[2019-04-17 19:15] VITALS: BP 100/58
--- NOTE | 2019-04-17 20:02 | UC ---
Throat Pain/Nasal Maicol HPI - HPI Summary HPI Summary: 28 year old female, denies PMH other than MH, presents with body aches, chills, decreased appetite. + sore throat, son with similar symptoms, concerned about strep throat. Denies fever. no GI symptoms. - History of Current Complaint Chief Complaint: UCRespiratory Stated Complaint: SORE THROAT Time Seen by Provider: 04/17/19 19:13 Hx Obtained From: Patient Hx Last Menstrual Period: about a month ago ?: No Onset/Duration: Sudden Onset Severity: Moderate Pain Intensity: 5 Pain Scale Used: 0-10 Numeric Cough: None Associated Signs & Symptoms: Positive: Dysphagia. Negative: FB Sensation, Sinus Discomfort, Fever - Allergies/Home Medications Allergies/Adverse Reactions: Allergies Allergy/AdvReac Type Severity Reaction Status Date / Time No Known Allergies Allergy Verified 04/17/19 19:11 Home Medications: Home Medications FLUoxetine CAP* [Prozac CAP*] 40 mg QAM 04/17/19 [History Confirmed 04/17/19] hydrOXYzine HCl [Hydroxyzine HCl] 1 tab QAM 04/17/19 [History Confirmed 04/17/19 ] PMH/Surg Hx/FS Hx/Imm Hx Previously Healthy: Yes - Surgical History Surgical History: Yes Surgery Procedure, Year, and Place: left arm surgery. and tubal ligation 02/08/15 - Family History Known Family History: Positive: None - parents living and healthy, Hypertension , Other - son with Friedrick's ataxia, Non-Contributory Negative: Cardiac Disease, Diabetes - Social History Alcohol Use: Rare Substance Use Type: None Smoking Status (MU): Light Every Day Tobacco Smoker Type: Cigarettes Amount Used/How Often: 6 cigs/day Have You Smoked in the Last Year: Yes Household Exposure Type: Cigarettes - Immunization History Most Recent Influenza Vaccination: none Hx Tetanus, Diphtheria Vaccination: Yes - 09/16/17 Review of Systems All Other Systems Reviewed And Are Negative: Yes Constitutional: Positive: Chills, Fatigue. Negative: Fever ENT: Positive: Sore Throat. Negative: Ear Ache Respiratory: Negative: Cough Musculoskeletal: Positive: Myalgia Physical Exam Triage Information Reviewed: Yes Appearance: Well-Appearing, No Pain Distress, Well-Nourished Vital Signs: Initial Vital Signs Temp 98.2 F 04/17/19 19:12 Pulse 62 04/17/19 19:12 Resp 16 04/17/19 19:12 BP 100/58 04/17/19 19:12 Pulse Ox 99 04/17/19 19:12 Vital Signs Reviewed: Yes Eyes: Positive: Conjunctiva Clear ENT: Positive: Hearing grossly normal, Pharyngeal erythema - minimal b/l, TMs normal, Uvula midline. Negative: Tonsillar swelling, Tonsillar exudate, Muffled voice, Sinus tenderness Neck: Positive: Supple, No Lymphadenopathy, Tenderness @ - b/l submand.. Negative: Nuchal Rigidity Respiratory: Positive: Chest non-tender, Lungs clear, Normal breath sounds, No respiratory distress, No accessory muscle use. Negative: Crackles, Rhonchi, Stridor, Wheezing Cardiovascular: Positive: RRR, No Murmur Musculoskeletal Exam: Normal Psychological Exam: Normal Skin Exam: Normal Throat Pain/Nasal Course/Dx - Course Course Of Treatment: Rapid Strep negative likely viral URI - Work note given - Increase fluid intake - Tylenol/ Motrin as needed for pain - Go to ER with shortness of breath, fever > 102 not brought down by medication , neck stiffness - Differential Dx/Diagnosis Differential Diagnosis/HQI/PQRI: Peritonsillar Abscess, Pharyngitis Provider Diagnosis: Viral upper respiratory infection Discharge ED - Sign-Out/Discharge Documenting (check all that apply): Patient Departure All imaging exams completed and their final reports reviewed: No Studies - Discharge Plan Condition: Good Disposition: HOME Patient Education Materials: Viral Syndrome (ED) Forms: *Work Release Referrals: Sameer Stark PA [Primary Care Provider] - Additional Instructions: - Work note given - Increase fluid intake - Tylenol/ Motrin as needed for pain - Go to ER with shortness of breath, fever > 102 not brought down by medication , neck stiffness - Billing Disposition and Condition Condition: GOOD Disposition: Home
== END 2019-04-17 20:02 | disposition home or self-care (01) ==
LOC: UCCORT 18:50
DX: J06.9 Acute upper respiratory infection, unspecified (principal); J02.9 Acute pharyngitis, unspecified; F17.210 Nicotine dependence, cigarettes, uncomplicated
CPT/HCPCS: 87651; 99211; G0463